=== PATIENT | male | born 1975 | race Asian ===

== ENCOUNTER 2016-03-06 11:54 | Outpatient (CLI) | payer OTHER ==
[~2016-03-06 11:54] MED LIST: FA-80.8 MG PO; HYDR500C PO; PANT40TA PO; PROBIOTIC1 TAB PO; WARF5TAB6 PO; WARFARIN7.5 MG PO; XARELTO20 MG PO
[2016-03-06 12:42] LABS: PLATELET COUNT 289 K/uL (142-355)
[2016-03-06 13:03] LABS: POTASSIUM 3.7 mmol/L (3.6-5.2); SODIUM 136 mmol/L (136-145)
== END 2016-03-06 12:54 | disposition home or self-care (01) ==
LOC: LABW 11:54
PROVIDERS: Internal Medicine
DX: D57.1 Sickle-cell disease without crisis (principal)
CPT/HCPCS: 36415; 80053; 85007; 85027

== ENCOUNTER 2016-05-30 15:01 | Emergency (ER) | payer OTHER ==
[~2016-05-30] VITALS: Ht 175.3 cm; Wt 64.4 kg
[2016-05-30 18:11] LABS: PLATELET COUNT 297 K/uL (142-355)
[2016-05-30 18:20] LABS: POTASSIUM 3.9 mmol/L (3.6-5.2); SODIUM 136 mmol/L (136-145)
[2016-05-31 00:44] VITALS: BP 126/82; TEMP 98.4
== END 2016-05-31 00:52 | disposition home or self-care (01) ==
LOC: ED 15:01
PROVIDERS: Specialist
DX: D57.00 Hb-SS disease with crisis, unspecified (principal)
CPT/HCPCS: 80048; 85007; 85027; 85044; 96361; 96374; 96375; 96376; 99284; J1170; J1885; J2175; J2405; J2550

== ENCOUNTER 2016-05-31 11:14 | Inpatient (IN) | payer OTHER ==
[~2016-05-31] VITALS: Ht 175.3 cm; Wt 64.4 kg
[2016-05-31 11:18] VITALS: BP 127/73; TEMP 98.9
[2016-05-31 13:08] LABS: POTASSIUM 3.9 mmol/L (3.6-5.2); SODIUM 134 mmol/L (136-145)
[2016-05-31 13:10] VITALS: BP 119/65; TEMP 98.5
[2016-05-31 13:21] LABS: PLATELET COUNT 266 K/uL (142-355)
[2016-05-31 15:25] VITALS: BP 106/55
[2016-05-31 16:18] VITALS: BP 98/52; TEMP 98.5; Ht 175.3 cm; Wt 64.4 kg
[2016-05-31 20:00] VITALS: BP 102/50; TEMP 98.8
[2016-06-01 00:28] VITALS: BP 95/47; TEMP 98.4
[2016-06-01 04:00] VITALS: BP 90/49; TEMP 98.3
[2016-06-01 04:46] LABS: PLATELET COUNT 249 K/uL (142-355)
[2016-06-01 04:58] LABS: POTASSIUM 3.9 mmol/L (3.6-5.2); SODIUM 131 mmol/L (136-145)
[2016-06-01 08:00] VITALS: BP 103/50; TEMP 98
[2016-06-01 12:19] VITALS: BP 96/57; TEMP 97.7
[2016-06-01 16:00] VITALS: BP 110/62; TEMP 97.7
[2016-06-01 20:00] VITALS: BP 105/47; TEMP 98.1
[2016-06-02 00:23] VITALS: BP 135/64; TEMP 98.4
[2016-06-02 05:06] VITALS: BP 95/40; TEMP 97.6
[2016-06-02 05:48] LABS: POTASSIUM 3.6 mmol/L (3.6-5.2); SODIUM 135 mmol/L (136-145)
[2016-06-02 06:21] LABS: PLATELET COUNT 244 K/uL (142-355)
[2016-06-02 08:00] VITALS: BP 101/62; TEMP 97.7
[2016-06-02 12:00] VITALS: BP 89/47; TEMP 98.1
[2016-06-02 16:00] VITALS: BP 107/50; TEMP 98.1
[2016-06-02 19:55] VITALS: BP 106/60; TEMP 98.1
[2016-06-03] VITALS: BP 92/46; TEMP 97.8
[2016-06-03 05:27] VITALS: BP 102/55; TEMP 98
[2016-06-03 05:50] LABS: POTASSIUM 3.6 mmol/L (3.6-5.2); SODIUM 135 mmol/L (136-145)
[2016-06-03 07:00] LABS: PLATELET COUNT 246 K/uL (142-355)
[2016-06-03 08:18] VITALS: BP 105/51; TEMP 98
[2016-06-03 12:00] VITALS: BP 142/50; TEMP 97.9
[2016-06-03 16:00] VITALS: BP 93/48; TEMP 98
[2016-06-03] MEDS ORDERED: OMEP40CA PO (18:25)
[2016-06-03] MEDS ORDERED: FOLI1TAB26 PO (18:25)
[2016-06-03 20:00] VITALS: BP 112/65; TEMP 98.1
[2016-06-04] VITALS: BP 99/32; TEMP 97.9
[2016-06-04 04:00] VITALS: BP 94/48; TEMP 97.6
[2016-06-04 06:22] LABS: POTASSIUM 3.5 mmol/L (3.6-5.2); SODIUM 136 mmol/L (136-145)
[2016-06-04 07:06] LABS: PLATELET COUNT 306 K/uL (142-355)
[2016-06-04 08:00] VITALS: BP 107/50; TEMP 98
[2016-06-04 12:00] VITALS: BP 112/64; TEMP 97.9
== END 2016-06-04 17:14 | disposition home or self-care (01) | DRG 812 ==
LOC: ED 11:14 → MED/SURG 14:17
PROVIDERS: Internal Medicine
PROC: 05H533Z Insertion of Infusion Device into Right Subclavian Vein, Percutaneous Approach (ICD-10-PCS; principal; 2016-05-31)
DX: D57.819 Other sickle-cell disorders with crisis, unspecified (principal); R11.2 Nausea with vomiting, unspecified; R73.9 Hyperglycemia, unspecified; E88.09 Other disorders of plasma-protein metabolism, not elsewhere classified; E83.42 Hypomagnesemia; E80.6 Other disorders of bilirubin metabolism
CPT/HCPCS: 36558; 36591; 80048; 80053; 81000; 83615; 83735; 85007; 85027; 85044; 87804; 96360; 96361; 96372; 96374; 96375; 96376; 99284; C1768; J1170; J1650; J1885; J2175; J2405; J2550; J3411; J3490

== ENCOUNTER 2016-08-07 19:42 | Emergency (ER) | payer OTHER ==
[~2016-08-07] VITALS: Ht 175.3 cm; Wt 65.8 kg
[~2016-08-07 19:42] MED LIST changes: +FOLI1TAB26 PO; +OMEP40CA PO
[2016-08-07 21:19] LABS: PLATELET COUNT 328 K/uL (142-355)
[2016-08-08 00:39] VITALS: BP 138/50; TEMP 97.8
== END 2016-08-08 00:47 | disposition home or self-care (01) ==
LOC: ED 19:42
DX: D57.1 Sickle-cell disease without crisis (principal); R52 Pain, unspecified
CPT/HCPCS: 85007; 85027; 96361; 96374; 96375; 96376; 99284; J2175; J2550

== ENCOUNTER 2016-08-09 15:08 | Inpatient (IN) | payer OTHER ==
[2016-08-09] VITALS (9 sets, daily range): BP systolic 120–142; BP diastolic 61–84; TEMP 97.9–98.3; Ht 175.3 cm; Wt 63.2 kg
[~2016-08-09] VITALS: Ht 175.3 cm; Wt 63.2 kg
[2016-08-09 15:55] LABS: PLATELET COUNT 295 K/uL (142-355)
[2016-08-09 16:03] LABS: POTASSIUM 4.3 mmol/L (3.6-5.2); SODIUM 139 mmol/L (136-145)
--- NOTE | 2016-08-09 20:00 | NUR ---
PT ARRIVED TO FLOOR VIA STRETCHER PER ER STAFF AT THIS TIME. NAD NOTED. BREATHING IS EQUAL AND UNLABORED. O2 AT 3LPM VIA NC IN USE AT THIS TIME. 20G IV TO RIGHT IJ IS PATENT WITH D51/2 NS WITH 20 MEQ OF KCL RUNNING AT 125 MLS/HOUR. PT WAS ORIENTED TO CALL LIGHT. PT VOICES NO COMPLAINTS AT THIS TIME. WILL CONTINUE TO MONITOR.
[2016-08-10] VITALS: BP 117/59; TEMP 98
[2016-08-10 04:00] VITALS: BP 120/62; TEMP 97.9
[2016-08-10 08:00] VITALS: BP 133/80; TEMP 97.8
[2016-08-10 12:00] VITALS: BP 132/78; TEMP 98
[2016-08-10 16:00] VITALS: BP 130/76; TEMP 97.8
[2016-08-10 20:00] VITALS: BP 124/74; TEMP 98.7
[2016-08-11] VITALS: BP 109/52; TEMP 97.9
[2016-08-11 04:00] VITALS: BP 104/98; TEMP 97.2
[2016-08-11 06:20] LABS: PLATELET COUNT 282 K/uL (142-355)
[2016-08-11 06:22] LABS: POTASSIUM 4.3 mmol/L (3.6-5.2); SODIUM 138 mmol/L (136-145)
[2016-08-11 08:00] VITALS: BP 102/53; TEMP 98.2
[2016-08-11 11:58] VITALS: BP 115/69; TEMP 97.9
[2016-08-11 15:53] VITALS: BP 122/63; TEMP 98.1
--- NOTE | 2016-08-11 17:15 | NUR ---
1030 PT HAS COMPLETED DRESSING CHANGES TO EACH FOOT. PT STATED BOTH FEET FELT BETTER TODAY AND DID NOT WISH FOR ME TO COMPLETE DRESSING CHANGES THIS SHIFT .
[2016-08-11 20:00] VITALS: BP 104/64; TEMP 98.4
[2016-08-12 00:05] VITALS: BP 145/76; TEMP 98.4
[2016-08-12 04:00] VITALS: BP 111/52; TEMP 98.3
[2016-08-12 06:23] LABS: PLATELET COUNT 290 K/uL (142-355)
[2016-08-12 06:29] LABS: SODIUM 139 mmol/L (136-145)
[2016-08-12 08:00] VITALS: BP 117/57; TEMP 98.3
[2016-08-12 12:00] VITALS: BP 125/62; TEMP 98.4
[2016-08-12 16:00] VITALS: BP 113/63; TEMP 98
[2016-08-12 20:00] VITALS: BP 123/64; TEMP 98.3
[2016-08-13] VITALS: BP 113/72; TEMP 99
[2016-08-13 04:00] VITALS: BP 124/77; TEMP 98.2
[2016-08-13 06:16] LABS: PLATELET COUNT 310 K/uL (142-355)
[2016-08-13 06:21] LABS: POTASSIUM 3.7 mmol/L (3.6-5.2); SODIUM 141 mmol/L (136-145)
[2016-08-13 07:49] VITALS: BP 114/51; TEMP 98.2
[2016-08-13 12:00] VITALS: BP 114/78; TEMP 98.1
[2016-08-13 16:00] VITALS: BP 133/72; TEMP 97.8
[2016-08-13 20:00] VITALS: BP 121/76; TEMP 98.1
[2016-08-14] VITALS: BP 121/68; TEMP 98.2
[2016-08-14 04:00] VITALS: BP 134/79; TEMP 98
[2016-08-14 08:00] VITALS: BP 119/66; TEMP 98
[2016-08-14 12:00] VITALS: BP 126/76; TEMP 98.4
== END 2016-08-14 15:30 | disposition home or self-care (01) | DRG 812 ==
LOC: ED 15:08 → MED/SURG 18:22
PROVIDERS: Emergency Medicine; ADMIT Specialist
DX: D57.819 Other sickle-cell disorders with crisis, unspecified (principal); L97.529 Non-pressure chronic ulcer of other part of left foot with unspecified severity
CPT/HCPCS: 36415; 80048; 80053; 81000; 82085; 82550; 82553; 83735; 84100; 84484; 85007; 85027; 85044; 87070; 87205; 94760; 96360; 96361; 96372; 96374; 96375; 96376; 99284; J1100; J1170; J1200; J1650; J2175; J2550

== ENCOUNTER 2016-08-23 00:42 | Emergency (ER) | payer OTHER ==
[~2016-08-23] VITALS: Ht 175.3 cm; Wt 63.5 kg
[2016-08-23 01:17] LABS: PLATELET COUNT 245 K/uL (142-355)
[2016-08-23 01:30] LABS: POTASSIUM 4.2 mmol/L (3.6-5.2); SODIUM 135 mmol/L (136-145)
[2016-08-23 06:41] VITALS: BP 121/86; TEMP 98.3
== END 2016-08-23 06:42 | disposition home or self-care (01) ==
LOC: ED 00:42
DX: D57.1 Sickle-cell disease without crisis (principal)
CPT/HCPCS: 36415; 80048; 81000; 85007; 85027; 85044; 96360; 96361; 96374; 96375; 99284; J2175; J2550

== ENCOUNTER 2016-10-24 03:52 | Emergency (ER) | payer OTHER ==
[~2016-10-24] VITALS: Ht 175.3 cm; Wt 60.3 kg
[2016-10-24 03:48] VITALS: TEMP 97.8
[2016-10-24 05:33] LABS: SODIUM 137 mmol/L (136-145)
[2016-10-24 05:38] LABS: PLATELET COUNT 280 K/uL (142-355)
[2016-10-24 09:00] VITALS: BP 128/67
== END 2016-10-24 09:15 | disposition home or self-care (01) ==
LOC: ED 03:52
PROVIDERS: Emergency Medicine
DX: D57.00 Hb-SS disease with crisis, unspecified (principal); R19.7 Diarrhea, unspecified
CPT/HCPCS: 80053; 81000; 85007; 85027; 96361; 96374; 96375; 96376; 99284; J1170; J1200; J2175

== ENCOUNTER 2016-12-27 15:49 | Outpatient (CLI) | payer OTHER ==
[2016-12-27 16:22] LABS: PLATELET COUNT 319 K/uL (142-355)
[2016-12-27 17:00] LABS: POTASSIUM 4.6 mmol/L (3.6-5.2); SODIUM 135 mmol/L (136-145)
== END 2016-12-27 21:39 | disposition home or self-care (01) ==
LOC: LABW 15:49
PROVIDERS: Internal Medicine Hematology & Oncology
DX: D57.80 Other sickle-cell disorders without crisis (principal)
CPT/HCPCS: 80053; 85007; 85027

== ENCOUNTER 2017-02-07 10:42 | Outpatient (CLI) | payer OTHER ==
[~2017-02-07] VITALS: Ht 175.3 cm; Wt 62.6 kg
[2017-02-07 11:44] LABS: PLATELET COUNT 239 K/uL (142-355)
[2017-02-07 12:19] LABS: POTASSIUM 4.6 mmol/L (3.6-5.2); SODIUM 139 mmol/L (136-145)
== END 2017-02-07 13:30 | disposition home or self-care (01) ==
LOC: INF 10:42
PROVIDERS: Internal Medicine
DX: D57.80 Other sickle-cell disorders without crisis (principal); D57.3 Sickle-cell trait; M54.89 Other dorsalgia; J06.9 Acute upper respiratory infection, unspecified
CPT/HCPCS: 80053; 85027; 96360

== ENCOUNTER 2017-02-07 20:57 | Emergency (ER) | payer OTHER ==
[~2017-02-07] VITALS: Ht 175.3 cm; Wt 62.6 kg
[2017-02-07 21:45] LABS: PLATELET COUNT 291 K/uL (142-355)
[2017-02-07 21:53] LABS: POTASSIUM 3.7 mmol/L (3.6-5.2); SODIUM 138 mmol/L (136-145)
[2017-02-08 03:30] VITALS: BP 123/68; TEMP 98.6
== END 2017-02-08 03:31 | disposition home or self-care (01) ==
LOC: ED 20:57
PROVIDERS: Specialist
DX: D57.00 Hb-SS disease with crisis, unspecified (principal); D57.80 Other sickle-cell disorders without crisis; D57.3 Sickle-cell trait; M54.89 Other dorsalgia; J06.9 Acute upper respiratory infection, unspecified
CPT/HCPCS: 36415; 80048; 80053; 81000; 85007; 85027; 85044; 96360; 96361; 96365; 96374; 96375; 96376; 99285; J1170; J2550

== ENCOUNTER 2017-02-16 07:14 | Inpatient (IN) | payer OTHER ==
[2017-02-16] VITALS (7 sets, daily range): BP systolic 100–134; BP diastolic 50–76; TEMP 97.9–99; Ht 175.3 cm; Wt 61.8 kg
[~2017-02-16] VITALS: Ht 175.3 cm; Wt 61.8 kg
[2017-02-16 09:21] LABS: PLATELET COUNT 288 K/uL (142-355)
[2017-02-17] VITALS: BP 138/78; TEMP 99.1
[2017-02-17 05:50] VITALS: BP 117/74; TEMP 98.1
[2017-02-17 06:55] LABS: PLATELET COUNT 243 K/uL (142-355)
[2017-02-17 08:00] VITALS: BP 100/46; TEMP 98.4
[2017-02-17 09:21] LABS: POTASSIUM 4.5 mmol/L (3.6-5.2); SODIUM 134 mmol/L (136-145)
[2017-02-17 11:44] VITALS: BP 101/54; TEMP 98.5
[2017-02-17 16:00] VITALS: BP 117/57; TEMP 98.2
[2017-02-17 20:00] VITALS: BP 108/55; TEMP 98.9
[2017-02-18] VITALS: BP 118/53; TEMP 98.8
[2017-02-18 04:00] VITALS: BP 133/70; TEMP 98.5
[2017-02-18 06:28] LABS: POTASSIUM 4.4 mmol/L (3.6-5.2); SODIUM 136 mmol/L (136-145)
[2017-02-18 06:49] LABS: PLATELET COUNT 290 K/uL (142-355)
[2017-02-18 08:00] VITALS: BP 106/58; TEMP 98
[2017-02-18 16:00] VITALS: BP 110/54; TEMP 98.3
[2017-02-18 20:00] VITALS: BP 115/64; TEMP 97.7
[2017-02-19] VITALS: BP 115/54; TEMP 98.3
[2017-02-19 04:00] VITALS: BP 116/71; TEMP 98.1
[2017-02-19 06:37] LABS: SODIUM 136 mmol/L (136-145)
[2017-02-19 06:41] LABS: POTASSIUM 4.9 mmol/L (3.6-5.2)
[2017-02-19 07:59] LABS: PLATELET COUNT 264 K/uL (142-355)
== END 2017-02-19 09:50 | disposition home or self-care (01) | DRG 812 ==
LOC: ED 07:14 → MED/SURG 10:47
PROVIDERS: Internal Medicine; ADMIT Specialist
DX: D57.811 Other sickle-cell disorders with acute chest syndrome (principal); E86.0 Dehydration
CPT/HCPCS: 36415; 80053; 85007; 85027; 85044; 96361; 96374; 96375; 96376; 99284; J1170; J1200; J2175; J2405; J2550

== ENCOUNTER 2017-05-08 12:32 | Emergency (ER) | payer OTHER ==
[~2017-05-08] VITALS: Ht 175.3 cm; Wt 63.5 kg
[2017-05-08 13:47] LABS: PLATELET COUNT 297 K/uL (142-355)
[2017-05-08 14:51] LABS: POTASSIUM 4.3 mmol/L (3.6-5.2); SODIUM 136 mmol/L (136-145)
[2017-05-08 20:24] VITALS: BP 127/73; TEMP 98.1
== END 2017-05-08 20:25 | disposition home or self-care (01) ==
LOC: ED 12:32
PROVIDERS: Family Medicine
DX: D57.00 Hb-SS disease with crisis, unspecified (principal); R10.9 Unspecified abdominal pain
CPT/HCPCS: 36415; 80053; 82150; 82550; 83690; 83735; 84100; 84484; 85027; 85044; 96360; 96374; 96375; 96376; 99284; J1170; J2270; J2405

== ENCOUNTER 2017-05-19 22:40 | Inpatient (IN) | payer OTHER ==
[~2017-05-19] VITALS: Ht 175.3 cm; Wt 59.1 kg
[2017-05-19 22:55] VITALS: BP 133/79; TEMP 99
[2017-05-19 23:00] VITALS: BP 152/79
[2017-05-19 23:31] VITALS: BP 160/80
[2017-05-20] VITALS (11 sets, daily range): BP systolic 103–160; BP diastolic 61–81; TEMP 98–98.5; Ht 175.3 cm; Wt 59.1 kg
[2017-05-20 00:19] LABS: PLATELET COUNT 322 K/uL (142-355)
[2017-05-20 10:01] LABS: PLATELET COUNT 296 K/uL (142-355)
[2017-05-21] VITALS: BP 119/70; TEMP 98.2
[2017-05-21 04:00] VITALS: BP 117/65; TEMP 98.7
[2017-05-21 06:22] LABS: PLATELET COUNT 284 K/uL (142-355)
[2017-05-21 06:41] LABS: POTASSIUM 4.2 mmol/L (3.6-5.2)
[2017-05-21 08:00] VITALS: BP 104/52; TEMP 98.2
[2017-05-21 11:50] VITALS: BP 116/71; TEMP 98
[2017-05-21 16:00] VITALS: BP 105/61; TEMP 98
[2017-05-21 20:00] VITALS: BP 105/52; TEMP 98.4
[2017-05-22] VITALS: BP 100/50; TEMP 98.4
[2017-05-22 04:00] VITALS: BP 133/62; TEMP 98.2
[2017-05-22 08:00] VITALS: BP 109/57; TEMP 98.4
[2017-05-22 08:56] LABS: POTASSIUM 4.3 mmol/L (3.6-5.2)
[2017-05-22 11:07] LABS: PLATELET COUNT 278 K/uL (142-355)
[2017-05-22 12:00] VITALS: BP 123/67; TEMP 98.2
[2017-05-22 16:00] VITALS: BP 115/67; TEMP 97.7
[2017-05-22 20:00] VITALS: BP 136/69; TEMP 98.1
[2017-05-23] VITALS: BP 120/64; TEMP 98.9
[2017-05-23 04:00] VITALS: BP 170/89; TEMP 98.6
[2017-05-23 08:09] VITALS: BP 98/51; TEMP 98.6
[2017-05-23 09:29] LABS: PLATELET COUNT 297 K/uL (142-355); POTASSIUM 4.6 mmol/L (3.6-5.2)
[2017-05-23 12:07] VITALS: BP 140/68; TEMP 98.6
[2017-05-23 16:00] VITALS: BP 131/65; TEMP 99.2
[2017-05-23 20:00] VITALS: BP 106/52; TEMP 98.6
[2017-05-24] VITALS: BP 119/67; TEMP 98
[2017-05-24 04:00] VITALS: BP 117/54; TEMP 99.8
[2017-05-24 08:00] VITALS: BP 106/57; TEMP 97.5
[2017-05-24 08:08] LABS: PLATELET COUNT 293 K/uL (142-355)
[2017-05-24 08:26] LABS: POTASSIUM 3.7 mmol/L (3.6-5.2)
[2017-05-24 12:00] VITALS: BP 111/59; TEMP 98.4
[2017-05-24 16:29] VITALS: BP 93/50; TEMP 98.7
[2017-05-24 20:00] VITALS: BP 123/79; TEMP 98.2
[2017-05-25] VITALS: BP 134/67; TEMP 99.4
[2017-05-25 04:00] VITALS: BP 110/55; TEMP 98.3
[2017-05-25 06:15] LABS: PLATELET COUNT 297 K/uL (142-355)
[2017-05-25 06:45] LABS: POTASSIUM 3.4 mmol/L (3.6-5.2)
[2017-05-25 08:00] VITALS: BP 116/69; TEMP 98.2
[2017-05-25 12:00] VITALS: BP 120/68; TEMP 98.2
== END 2017-05-25 14:12 | disposition home or self-care (01) | DRG 812 ==
LOC: ED 22:40 → MED/SURG 05-20 04:30
PROVIDERS: Family Medicine; Internal Medicine
PROC: 30233N1 Transfusion of Nonautologous Red Blood Cells into Peripheral Vein, Percutaneous Approach (ICD-10-PCS; principal; 2017-05-24)
DX: D57.00 Hb-SS disease with crisis, unspecified (principal); J98.11 Atelectasis; E80.6 Other disorders of bilirubin metabolism; R74.8 Abnormal levels of other serum enzymes; K31.84 Gastroparesis; K59.09 Other constipation; D72.828 Other elevated white blood cell count; I83.018 Varicose veins of right lower extremity with ulcer other part of lower leg; I83.028 Varicose veins of left lower extremity with ulcer other part of lower leg; B95.61 Methicillin susceptible Staphylococcus aureus infection as the cause of diseases classified elsewhere
CPT/HCPCS: 36415; 36416; 36430; 80053; 81000; 82150; 83540; 83690; 85007; 85014; 85018; 85027; 85044; 86850; 86900; 86901; 86922; 87070; 87077; 87185; 87186; 87205; 94760; 96361; 96365; 96367; 96372; 96374; 96375; 96376; 99285; J0696; J1170; J1644; J2175; J2405; J2550; J3490; P9016; Q9963

== ENCOUNTER 2017-05-28 08:08 | Outpatient (CLI) | payer OTHER ==
[2017-05-28 09:10] LABS: PLATELET COUNT 369 K/uL (142-355)
== END 2017-05-28 18:01 | disposition home or self-care (01) ==
LOC: LABW 08:08
PROVIDERS: Family Medicine
DX: R73.9 Hyperglycemia, unspecified (principal); D57.80 Other sickle-cell disorders without crisis
CPT/HCPCS: 36415; 80053; 83036; 85027

== ENCOUNTER 2017-08-10 15:54 | Emergency (ER) | payer OTHER ==
[~2017-08-10] VITALS: Ht 175.3 cm; Wt 63.5 kg
[2017-08-11 01:22] VITALS: BP 154/72; TEMP 99
== END 2017-08-11 01:22 | disposition home or self-care (01) ==
LOC: ED 15:54
DX: D57.00 Hb-SS disease with crisis, unspecified (principal)
CPT/HCPCS: 36415; 96361; 96365; 96375; 96376; 99285; J1170; J1200; J2405; J2550

== ENCOUNTER 2017-08-11 13:05 | Observation (INO) | payer OTHER ==
[~2017-08-11] VITALS: Ht 175.3 cm; Wt 57.8 kg
[2017-08-11 13:11] VITALS: BP 115/56; TEMP 100.2
[2017-08-11 15:46] LABS: PLATELET COUNT 230 K/uL (142-355)
[2017-08-11 15:56] LABS: POTASSIUM 5.1 mmol/L (3.6-5.2)
[2017-08-11 19:46] VITALS: BP 113/64; TEMP 98.1; Ht 175.3 cm; Wt 57.8 kg
== END 2017-08-11 19:45 | disposition short-term general hospital (02) ==
LOC: ED 13:05 → MED/SURG 14:30
PROC: 05HM33Z Insertion of Infusion Device into Right Internal Jugular Vein, Percutaneous Approach (ICD-10-PCS; principal; 2017-08-11)
PROC: B543ZZA Ultrasonography of Right Jugular Veins, Guidance (ICD-10-PCS; 2017-08-11)
DX: J18.8 Other pneumonia, unspecified organism (principal); I87.8 Other specified disorders of veins
CPT/HCPCS: 36415; 74022; 80053; 85007; 85027; 96367; 96372; 96374; 99220; 99284; C1768; G0378; J0456; J0696; J1170; J2405; J2550

== ENCOUNTER 2017-08-11 20:06 | Outpatient (CLI) | payer OTHER | END 2017-08-11 22:25 | disposition short-term general hospital (02) | LOC: AMB 20:06 | DX: D57.00 Hb-SS disease with crisis, unspecified (principal) | CPT/HCPCS: A0425; A0427 ==

== ENCOUNTER 2017-08-16 12:52 | Emergency (ER) | payer OTHER ==
[~2017-08-16] VITALS: Ht 175.3 cm; Wt 57.6 kg
[2017-08-16 13:10] VITALS: TEMP 98.6
[2017-08-16 13:46] LABS: POTASSIUM 4.1 mmol/L (3.6-5.2)
[2017-08-16 13:50] LABS: PLATELET COUNT 330 K/uL (142-355)
[2017-08-16 15:47] VITALS: BP 157/87
== END 2017-08-16 16:15 | disposition home or self-care (01) ==
LOC: ED 12:52
DX: K59.00 Constipation, unspecified (principal); D57.1 Sickle-cell disease without crisis
CPT/HCPCS: 36415; 80053; 81000; 82150; 83690; 85007; 85027; 85044; 96374; 99284; J1170; J2550; J7120

== ENCOUNTER 2017-08-17 18:31 | Emergency (ER) | payer OTHER ==
[~2017-08-17] VITALS: Ht 175.3 cm; Wt 57.6 kg
[2017-08-17 20:44] VITALS: BP 126/65; TEMP 98.4
== END 2017-08-17 20:47 | disposition home or self-care (01) ==
LOC: ED 18:31
DX: K52.9 Noninfective gastroenteritis and colitis, unspecified (principal)
CPT/HCPCS: 74022; 96372; 99283; J1885

== ENCOUNTER 2017-08-18 14:22 | Inpatient (IN) | payer OTHER ==
[~2017-08-18] VITALS: Ht 175.3 cm; Wt 58.1 kg
[2017-08-18 15:32] VITALS: BP 145/82; TEMP 98.7; Ht 175.3 cm; Wt 58.1 kg
[2017-08-18 16:02] LABS: PLATELET COUNT 374 K/uL (142-355)
[2017-08-18 16:20] LABS: POTASSIUM 3.7 mmol/L (3.6-5.2)
[2017-08-18 20:00] VITALS: BP 144/51; TEMP 98.1
[2017-08-19] VITALS (7 sets, daily range): BP systolic 97–133; BP diastolic 54–73; TEMP 97.7–98.8
[2017-08-19 06:27] LABS: PLATELET COUNT 335 K/uL (142-355); POTASSIUM 4.1 mmol/L (3.6-5.2)
[2017-08-20 04:00] VITALS: BP 115/63; TEMP 98.5
[2017-08-20 05:44] LABS: POTASSIUM 3.9 mmol/L (3.6-5.2)
[2017-08-20 07:49] LABS: PLATELET COUNT 253 K/uL (142-355)
[2017-08-20 07:50] VITALS: BP 110/55; TEMP 98.2
[2017-08-20 12:00] VITALS: BP 119/69; TEMP 98
[2017-08-20 16:00] VITALS: BP 116/65; TEMP 98.6
[2017-08-20 20:00] VITALS: BP 126/69; TEMP 98.6
[2017-08-21] VITALS: BP 116/60; TEMP 98.9
[2017-08-21 04:00] VITALS: BP 120/69; TEMP 98.1
[2017-08-21 07:10] LABS: PLATELET COUNT 332 K/uL (142-355)
[2017-08-21 07:23] LABS: POTASSIUM 4.1 mmol/L (3.6-5.2)
[2017-08-21 08:00] VITALS: BP 101/55; TEMP 97.9
== END 2017-08-21 09:05 | disposition home or self-care (01) | DRG 812 ==
LOC: MED/SURG 14:22
PROVIDERS: ADMIT Internal Medicine
DX: D57.411 Sickle-cell thalassemia, unspecified, with acute chest syndrome (principal); R10.84 Generalized abdominal pain
CPT/HCPCS: 36415; 36591; 80053; 81000; 82150; 83690; 85007; 85027; 85044; 94760; 96365; 96366; 96367; 96375; J2175; J2550; J3490

== ENCOUNTER 2017-10-03 13:10 | Outpatient (CLI) | payer OTHER ==
[2017-10-03 13:56] LABS: PLATELET COUNT 257 K/uL (142-355)
[2017-10-03 14:52] LABS: POTASSIUM 4.5 mmol/L (3.6-5.2)
== END 2017-10-03 19:48 | disposition home or self-care (01) ==
LOC: LAB 13:10
PROVIDERS: Internal Medicine Hematology & Oncology
DX: D57.1 Sickle-cell disease without crisis (principal)
CPT/HCPCS: 36415; 80053; 82728; 85007; 85027; 85044

== ENCOUNTER 2017-10-22 11:02 | Day surgery (SDC) | payer OTHER | END 2017-10-22 14:47 | disposition home or self-care (01) | LOC: OR 11:02 | PROC: 0DBE8ZZ Excision of Large Intestine, Via Natural or Artificial Opening Endoscopic (ICD-10-PCS; principal; 2017-10-22) | DX: K64.8 Other hemorrhoids (principal); K63.3 Ulcer of intestine; R19.4 Change in bowel habit; K59.00 Constipation, unspecified; R10.84 Generalized abdominal pain | CPT/HCPCS: J2001; J2250; J2704 ==

== ENCOUNTER 2017-12-31 21:43 | Inpatient (IN) | payer OTHER ==
[~2017-12-31] VITALS: Ht 175.3 cm; Wt 60.8 kg
[2017-12-31 21:43] VITALS: BP 153/92; TEMP 99.5
[2017-12-31 22:14] LABS: PLATELET COUNT 282 K/uL (142-355)
[2017-12-31 22:26] LABS: POTASSIUM 4.4 mmol/L (3.6-5.2)
[2018-01-01 01:17] VITALS: BP 150/88; TEMP 97.7
[2018-01-01 04:00] VITALS: BP 136/60; TEMP 97.7
[2018-01-01 04:08] VITALS: BP 150/88; TEMP 97.7; Ht 175.3 cm; Wt 60.8 kg
[2018-01-01 07:18] LABS: PLATELET COUNT 211 K/uL (142-355)
[2018-01-01 08:00] VITALS: BP 123/59; TEMP 98.2
[2018-01-01 08:12] LABS: POTASSIUM 4.3 mmol/L (3.6-5.2)
[2018-01-01 17:40] VITALS: BP 145/80; TEMP 97.8
[2018-01-01 20:00] VITALS: BP 127/70; TEMP 98.4
[2018-01-02] VITALS (7 sets, daily range): BP systolic 107–125; BP diastolic 51–97; TEMP 98.3–98.9
[2018-01-03 04:00] VITALS: BP 105/54; TEMP 98.8
[2018-01-03 06:57] LABS: PLATELET COUNT 272 K/uL (142-355)
[2018-01-03 08:16] VITALS: BP 120/73; TEMP 98.9
[2018-01-03 12:03] VITALS: BP 107/60; TEMP 97.6
[2018-01-03 16:26] VITALS: BP 119/73; TEMP 98.4
[2018-01-03 20:00] VITALS: BP 115/62; TEMP 98.4
[2018-01-03 23:48] VITALS: BP 110/64; TEMP 98.5
[2018-01-04 04:00] VITALS: BP 120/69; TEMP 98.5
[2018-01-04 08:03] VITALS: BP 119/69; TEMP 97.9
[2018-01-04 12:03] VITALS: BP 127/66; TEMP 98
[2018-01-04 16:16] VITALS: BP 113/67; TEMP 98.1
[2018-01-04 20:00] VITALS: BP 120/61; TEMP 98.6
[2018-01-04 23:44] VITALS: BP 118/76; TEMP 98.3
[2018-01-05 04:00] VITALS: BP 108/55; TEMP 98.2
[2018-01-05 08:08] VITALS: BP 127/55; TEMP 98.7
== END 2018-01-05 11:50 | disposition home or self-care (01) | DRG 812 ==
LOC: ED 21:43 → MED/SURG 23:22
PROVIDERS: Emergency Medicine; Family Medicine
PROC: 30233N1 Transfusion of Nonautologous Red Blood Cells into Peripheral Vein, Percutaneous Approach (ICD-10-PCS; principal; 2018-01-01)
DX: D57.811 Other sickle-cell disorders with acute chest syndrome (principal); E86.0 Dehydration; J02.8 Acute pharyngitis due to other specified organisms; R31.9 Hematuria, unspecified; D72.828 Other elevated white blood cell count; K21.9 Gastro-esophageal reflux disease without esophagitis; M25.50 Pain in unspecified joint; Z86.711 Personal history of pulmonary embolism
CPT/HCPCS: 36415; 80053; 81000; 82607; 82746; 85007; 85014; 85018; 85027; 85044; 86850; 86900; 86901; 86922; 93005; 94760; 96361; 96366; 96367; 96372; 96374; 96375; 96376; 99284; J0696; J1200; J1885; J1956; J2175; J2405; J2550; J2930; P9016

== ENCOUNTER 2018-02-11 12:38 | Outpatient (CLI) | payer OTHER ==
[2018-02-12 12:33] LABS: POTASSIUM 5.6 mmol/L (3.6-5.2)
== END 2018-02-11 23:02 | disposition home or self-care (01) ==
LOC: LABW 12:38
PROVIDERS: Internal Medicine
DX: R31.9 Hematuria, unspecified (principal)
CPT/HCPCS: 36415; 80053; 86592

== ENCOUNTER 2018-03-31 19:26 | Inpatient (IN) | payer OTHER ==
[~2018-03-31] VITALS: Ht 175.3 cm; Wt 58.6 kg
[2018-03-31 20:00] VITALS: BP 143/82; TEMP 98.5
[2018-03-31 21:27] LABS: PLATELET COUNT 286 K/uL (142-355)
[2018-03-31 21:30] LABS: POTASSIUM 3.8 mmol/L (3.6-5.2)
[2018-03-31 23:40] VITALS: BP 140/71; TEMP 99
[2018-03-31] MEDS ORDERED: KP FOLIC ACID1 MG PO (23:48)
[2018-03-31] MEDS ORDERED: OXYCONTIN15 MG PO (23:48)
[2018-03-31] MEDS ORDERED: TRAMADOL HCL100 MG PO (23:49)
[2018-04-01] VITALS (8 sets, daily range): BP systolic 109–130; BP diastolic 58–72; TEMP 98.1–98.5; Ht 175.3 cm; Wt 58.6 kg
[2018-04-01 06:27] LABS: POTASSIUM 3.8 mmol/L (3.6-5.2)
[2018-04-01 06:32] LABS: PLATELET COUNT 274 K/uL (142-355)
[2018-04-02] VITALS: BP 107/54; TEMP 98.4
[2018-04-02 04:00] VITALS: BP 106/68; TEMP 98.7
[2018-04-02 08:09] VITALS: BP 131/69; TEMP 98.5
[2018-04-02 08:11] LABS: PLATELET COUNT 301 K/uL (142-355)
[2018-04-02 08:36] LABS: POTASSIUM 4.3 mmol/L (3.6-5.2)
[2018-04-02 12:09] VITALS: BP 107/59; TEMP 98.4
[2018-04-02 16:18] VITALS: BP 115/59; TEMP 98.4
[2018-04-02 20:00] VITALS: BP 114/63; TEMP 98.6
[2018-04-03] VITALS: BP 103/60; TEMP 99
[2018-04-03 04:00] VITALS: BP 113/59; TEMP 98.9
[2018-04-03 06:40] LABS: PLATELET COUNT 306 K/uL (142-355)
[2018-04-03 06:45] LABS: POTASSIUM 4.1 mmol/L (3.6-5.2)
[2018-04-03 08:03] VITALS: BP 111/54; TEMP 98.3
== END 2018-04-03 09:43 | disposition home or self-care (01) | DRG 812 ==
LOC: ED 19:26 → MED/SURG 23:33
PROVIDERS: Internal Medicine; ADMIT Internal Medicine
DX: D57.819 Other sickle-cell disorders with crisis, unspecified (principal); L97.318 Non-pressure chronic ulcer of right ankle with other specified severity; E86.0 Dehydration; L08.89 Other specified local infections of the skin and subcutaneous tissue; B95.62 Methicillin resistant Staphylococcus aureus infection as the cause of diseases classified elsewhere; Z86.711 Personal history of pulmonary embolism
CPT/HCPCS: 80053; 81000; 83615; 85007; 85014; 85018; 85027; 85044; 86850; 86900; 86901; 87070; 87077; 87185; 87186; 87205; 93005; 94760; 96361; 96365; 96375; 96376; 99284; J2175; J2270; J2405; J2543; J2550

== ENCOUNTER 2018-04-11 20:52 | Inpatient (IN) | payer OTHER ==
[~2018-04-11] VITALS: Ht 175.3 cm; Wt 59.5 kg
[~2018-04-11 20:52] MED LIST changes: +KP FOLIC ACID1 MG PO; +OXYCONTIN15 MG PO; +TRAMADOL HCL100 MG PO
[2018-04-11 20:55] VITALS: BP 102/53; TEMP 100.2
[2018-04-11 21:28] LABS: PLATELET COUNT 384 K/uL (142-355)
[2018-04-11 22:08] LABS: POTASSIUM 4.3 mmol/L (3.6-5.2)
[2018-04-12 04:00] VITALS: BP 92/45; TEMP 97.9
[2018-04-12 04:30] VITALS: BP 100/57; TEMP 98.2; Ht 175.3 cm; Wt 59.5 kg
[2018-04-12 08:00] VITALS: BP 113/58; TEMP 97.6
[2018-04-12 09:10] LABS: POTASSIUM 4.3 mmol/L (3.6-5.2)
[2018-04-12 09:11] LABS: PLATELET COUNT 125 K/uL (142-355)
[2018-04-12] MEDS ORDERED: PANTOPRAZOLE 40MG TA PO (10:58)
[2018-04-12] MEDS ORDERED: TRAMADOL HYDROC50 MG PO (11:02)
[2018-04-12] MEDS ORDERED: DICYCLOMINE HYD20 MG PO (11:03)
[2018-04-12] MEDS ORDERED: CLIN300C PO (11:05)
[2018-04-12 12:00] VITALS: BP 110/60; TEMP 98.1
[2018-04-12 16:00] VITALS: BP 127/73; TEMP 98.3
[2018-04-12 20:00] VITALS: BP 124/64; TEMP 98.5
[2018-04-13] VITALS: BP 101/56; TEMP 99.1
[2018-04-13 04:00] VITALS: BP 99/42; TEMP 99.5
[2018-04-13 07:16] LABS: POTASSIUM 4.8 mmol/L (3.6-5.2)
[2018-04-13 07:59] LABS: PLATELET COUNT 265 K/uL (142-355)
[2018-04-13 08:10] VITALS: BP 105/57; TEMP 99
[2018-04-13 12:00] VITALS: BP 100/54; TEMP 97.9
[2018-04-13 16:00] VITALS: BP 106/56; TEMP 98.4
[2018-04-13 20:31] VITALS: BP 106/51; TEMP 98.6
[2018-04-14 00:03] VITALS: BP 95/50; TEMP 98.8
[2018-04-14 04:07] VITALS: BP 102/59; TEMP 97.6
[2018-04-14 04:27] LABS: PLATELET COUNT 294 K/uL (142-355)
[2018-04-14 05:04] LABS: POTASSIUM 4.4 mmol/L (3.6-5.2)
[2018-04-14 08:00] VITALS: BP 113/56; TEMP 97.7
[2018-04-14 12:00] VITALS: BP 114/66; TEMP 87
[2018-04-14 16:00] VITALS: BP 121/69; TEMP 97.7
[2018-04-14 20:00] VITALS: BP 146/62; TEMP 98.3
[2018-04-15] VITALS: BP 127/73; TEMP 98.8
[2018-04-15 04:32] VITALS: BP 113/68; TEMP 98.5
[2018-04-15 05:45] LABS: PLATELET COUNT 316 K/uL (142-355)
[2018-04-15 06:13] LABS: POTASSIUM 4.3 mmol/L (3.6-5.2)
[2018-04-15 08:07] VITALS: BP 124/67; TEMP 97.8
== END 2018-04-15 10:05 | disposition home or self-care (01) | DRG 193 ==
LOC: ED 20:52 → MED/SURG 23:17
PROVIDERS: Family Medicine; Internal Medicine; ADMIT Family Medicine
PROC: 30233N1 Transfusion of Nonautologous Red Blood Cells into Peripheral Vein, Percutaneous Approach (ICD-10-PCS; principal; 2018-04-13)
DX: J18.8 Other pneumonia, unspecified organism (principal); D57.819 Other sickle-cell disorders with crisis, unspecified; E86.0 Dehydration; Y95 Nosocomial condition
CPT/HCPCS: 36415; 36416; 80053; 80202; 81000; 85007; 85014; 85018; 85027; 86850; 86900; 86901; 86922; 87040; 87502; 87899; 93005; 94640; 94664; 94760; 96361; 96365; 96372; 96375; J0456; J0696; J1170; J1644; J2175; J2550; J3370; J3490; P9016

== ENCOUNTER 2018-05-11 10:11 | Outpatient (CLI) | payer OTHER ==
[~2018-05-11 10:11] MED LIST changes: +CLIN300C PO; +DICYCLOMINE HYD20 MG PO; +PANTOPRAZOLE 40MG TA PO; +TRAMADOL HYDROC50 MG PO
[2018-05-11 10:47] LABS: PLATELET COUNT 283 K/uL (142-355)
[2018-05-11 12:06] LABS: POTASSIUM 4.7 mmol/L (3.6-5.2)
== END 2018-05-11 19:46 | disposition home or self-care (01) ==
LOC: LABW 10:11
PROVIDERS: Internal Medicine Hematology & Oncology
DX: D57.1 Sickle-cell disease without crisis (principal)
CPT/HCPCS: 36415; 80053; 82728; 85027; 85044

== ENCOUNTER 2018-05-11 19:31 | Emergency (ER) | payer OTHER ==
[~2018-05-11] VITALS: Ht 175.3 cm; Wt 59.4 kg
[2018-05-11 19:40] VITALS: BP 138/54; TEMP 98.8
== END 2018-05-11 20:20 | disposition home or self-care (01) ==
LOC: ED 19:31
DX: S61.213A Laceration without foreign body of left middle finger without damage to nail, initial encounter (principal); W29.3XXA Contact with powered garden and outdoor hand tools and machinery, initial encounter
CPT/HCPCS: 90471; 90715; 99283

== ENCOUNTER 2018-07-09 07:27 | Outpatient (CLI) | payer OTHER | END 2018-07-09 23:08 | disposition home or self-care (01) | LOC: NM 07:27 | DX: K30 Functional dyspepsia (principal); R14.1 Gas pain | CPT/HCPCS: A9541 ==

== ENCOUNTER 2018-09-02 12:29 | Inpatient (IN) | payer OTHER ==
[2018-09-02] VITALS (9 sets, daily range): BP systolic 98–118; BP diastolic 52–63; TEMP 98–102.7; Ht 175.3 cm; Wt 60.6 kg
[~2018-09-02] VITALS: Ht 175.3 cm; Wt 60.6 kg
[2018-09-02 13:04] LABS: PLATELET COUNT 287 K/uL (142-355)
[2018-09-02 13:15] LABS: POTASSIUM 4.6 mmol/L (3.6-5.2)
[2018-09-02] MEDS ORDERED: KP FOLIC ACID1 MG PO (18:12)
[2018-09-02] MEDS ORDERED: LISI5TAB10 PO (18:12)
[2018-09-02] MEDS ORDERED: DEXILANT60 M1 PO (18:13)
[2018-09-02] MEDS ORDERED: METOCLOPRAMIDE O5 MG PO (18:14)
[2018-09-03] VITALS: BP 112/49; TEMP 98.3
[2018-09-03 04:00] VITALS: BP 103/58; TEMP 98
[2018-09-03 06:40] LABS: POTASSIUM 4.2 mmol/L (3.6-5.2)
[2018-09-03 08:00] VITALS: BP 110/62; TEMP 97.6
[2018-09-03 08:02] LABS: PLATELET COUNT 192 K/uL (142-355)
[2018-09-03 12:00] VITALS: BP 113/62; TEMP 97.4
[2018-09-03 16:00] VITALS: BP 113/62; TEMP 97.8
[2018-09-03 20:00] VITALS: BP 109/60; TEMP 98.1
[2018-09-04] VITALS: BP 116/58; TEMP 98.4
[2018-09-04 04:00] VITALS: BP 121/68; TEMP 98.2
[2018-09-04 06:23] LABS: PLATELET COUNT 237 K/uL (142-355)
[2018-09-04 08:03] VITALS: BP 108/59; TEMP 97.7
[2018-09-04 08:08] LABS: POTASSIUM 4.7 mmol/L (3.6-5.2)
[2018-09-04 12:05] VITALS: BP 122/70; TEMP 97.7
[2018-09-04 16:01] VITALS: BP 129/75; TEMP 97.9
[2018-09-04 19:45] VITALS: BP 157/64; TEMP 97.8
[2018-09-05] VITALS (7 sets, daily range): BP systolic 109–144; BP diastolic 67–77; TEMP 97.7–98.2
[2018-09-05 14:33] LABS: PLATELET COUNT 240 K/uL (142-355)
[2018-09-06 04:00] VITALS: BP 115/62; TEMP 97.9
[2018-09-06 06:40] LABS: PLATELET COUNT 232 K/uL (142-355)
[2018-09-06 08:00] VITALS: BP 132/80; TEMP 97.9
[2018-09-06 12:00] VITALS: BP 146/76; TEMP 98
== END 2018-09-06 13:29 | disposition home or self-care (01) | DRG 811 ==
LOC: ED 12:29 → MED/SURG 15:38
PROVIDERS: Emergency Medicine; ADMIT Family Medicine
PROC: 05H533Z Insertion of Infusion Device into Right Subclavian Vein, Percutaneous Approach (ICD-10-PCS; principal; 2018-09-02)
PROC: 30243N1 Transfusion of Nonautologous Red Blood Cells into Central Vein, Percutaneous Approach (ICD-10-PCS; 2018-09-03)
DX: D57.819 Other sickle-cell disorders with crisis, unspecified (principal); J18.8 Other pneumonia, unspecified organism; J96.01 Acute respiratory failure with hypoxia; J21.9 Acute bronchiolitis, unspecified; K72.90 Hepatic failure, unspecified without coma; Z86.711 Personal history of pulmonary embolism; Z91.14 Patient's other noncompliance with medication regimen; I87.8 Other specified disorders of veins
CPT/HCPCS: 36415; 36600; 80053; 82553; 82805; 83605; 83880; 84484; 85007; 85027; 85044; 85379; 85651; 86850; 86900; 86901; 86922; 87040; 93005; 94640; 94664; 94760; 96360; 96375; 99220; 99284; C1768; G0378; J0456; J0696; J1650; J1885; J2175; J2550; J2765; J2930; J3490; P9016; Q9963

== ENCOUNTER 2018-09-28 10:53 | Outpatient (CLI) | payer OTHER ==
[~2018-09-28 10:53] MED LIST changes: +DEXILANT60 M1 PO; +LISI5TAB10 PO; +METOCLOPRAMIDE O5 MG PO
[2018-09-28 11:06] LABS: PLATELET COUNT 306 K/uL (142-355)
== END 2018-09-29 05:50 | disposition home or self-care (01) ==
LOC: LABW 10:53
PROVIDERS: Internal Medicine Hematology & Oncology
DX: D57.1 Sickle-cell disease without crisis (principal)
CPT/HCPCS: 36415; 82728; 85007; 85027

== ENCOUNTER 2018-10-19 15:53 | Inpatient (IN) | payer OTHER ==
[~2018-10-19] VITALS: Ht 175.3 cm; Wt 58.2 kg
[2018-10-19] VITALS (7 sets, daily range): BP systolic 113–145; BP diastolic 35–75; TEMP 97.7–98.2
[2018-10-19 17:26] LABS: PLATELET COUNT 363 K/uL (142-355)
[2018-10-19 17:33] LABS: POTASSIUM 4.1 mmol/L (3.6-5.2)
--- NOTE | 2018-10-19 22:00 | NUR ---
2199- TOOK REPORT ON PATIENT FROM ED NURSE INNA 2214- PATIENT WAS TRANSFERRED VIA W/C TO ROOM 1115 ON MED-SURG FROM THE ED. PT WAS ORIENTED TO ROOM AND CALL LIGHT. PLACED ON TELEMENTRY AND BEING MONITORED AT THE NURSES STATION. CALL LIGHT IS WITHIN REACH AND MOTHER IS AT BEDSIDE. WILL CONTINUE TO MONITOR.
[2018-10-20] VITALS (7 sets, daily range): BP systolic 97–122; BP diastolic 40–62; TEMP 98–98.2
[2018-10-20] MEDS ORDERED: TRAMADOL HYDROC50 MG PO (03:18)
[2018-10-20] MEDS ORDERED: OXYCONTIN15 MG PO (03:19)
[2018-10-20] MEDS ORDERED: AMBIEN5 MG PO (03:21)
[2018-10-20] MEDS ORDERED: METOCLOPRAMIDE10 MG PO (03:24)
[2018-10-20 05:19] LABS: PLATELET COUNT 302 K/uL (142-355)
--- NOTE | 2018-10-20 05:51 | NUR ---
Lab called with HGB of 6.8 amd HCT of 18.8. Results were results were reported ot oncoming day shift nurse, Remedios Talley LPN, to make Dr Main aware of when he comes to hospital this morning.
--- NOTE | 2018-10-20 23:22 | NUR ---
Patient called to nurses station and stated "that he was in pain and needed prn pain and nausea medication. Demerol 75 mg, iv and Phenergan 12.5 mg, iv was administered. No acute distress noted and call light is within reach. Will continue to monitor.
[2018-10-21 04:00] VITALS: BP 107/59; TEMP 98.3
[2018-10-21 05:10] LABS: PLATELET COUNT 268 K/uL (142-355)
[2018-10-21 05:48] LABS: POTASSIUM 4.5 mmol/L (3.6-5.2)
--- NOTE | 2018-10-21 05:48 | NUR ---
Lab called and reported Hgb of 6.2 and Hct of18. Results reported to oncoming day shift nurse to informed Dr Main of results.
[2018-10-21 08:00] VITALS: BP 111/56; TEMP 98.5
--- NOTE | 2018-10-21 08:15 | NUR ---
DR JOHNSON HERE. REPORTED LABS. NEW ORDERS.
--- NOTE | 2018-10-21 08:33 | NUR ---
PT MEDICATED FOR ABD PAIN PER'S ORDERS.
--- NOTE | 2018-10-21 09:30 | NUR ---
PT RESTING QUIETLY. NO C/O.
--- NOTE | 2018-10-21 11:47 | NUR ---
WAS GIVEN REPORT BY RUDY GASCA RN. TOOK OVER CARE OF PT
[2018-10-21 12:00] VITALS: BP 99/49; TEMP 98.6
[2018-10-21 16:00] VITALS: BP 116/61; TEMP 98.3
[2018-10-21 16:55] LABS: PLATELET COUNT 359 K/uL (142-355)
[2018-10-21 17:06] LABS: POTASSIUM 4.5 mmol/L (3.6-5.2)
[2018-10-21 19:57] VITALS: BP 112/53; TEMP 98.6
[2018-10-21 23:53] VITALS: BP 110/49; TEMP 98.7
[2018-10-22 03:58] VITALS: BP 118/60; TEMP 98.6
[2018-10-22 08:00] VITALS: BP 113/50; TEMP 98.3
--- NOTE | 2018-10-22 09:53 | NUR ---
0924 PT LEFT AMBULATORY WITH FAMILY. NO ACUTE DISTRESS NOTED.
== END 2018-10-22 09:20 | disposition home or self-care (01) | DRG 380 ==
LOC: ED 15:53 → MED/SURG 20:11
PROVIDERS: Internal Medicine; ADMIT Student in an Organized Health Care Education/Training Program
DX: K31.1 Adult hypertrophic pyloric stenosis (principal); D57.819 Other sickle-cell disorders with crisis, unspecified; J98.11 Atelectasis; J21.8 Acute bronchiolitis due to other specified organisms; K31.84 Gastroparesis; E80.6 Other disorders of bilirubin metabolism; R09.02 Hypoxemia; I99.8 Other disorder of circulatory system; M79.18 Myalgia, other site
CPT/HCPCS: 36415; 80048; 80053; 81000; 83690; 83735; 85007; 85027; 85044; 85610; 93005; 96360; 96375; 96376; 99284; J1170; J2175; J2270; J2405; J2550; J2765; J3490

== ENCOUNTER 2018-11-02 18:27 | Emergency (ER) | payer OTHER ==
[~2018-11-02] VITALS: Ht 175.3 cm; Wt 58.1 kg
[~2018-11-02 18:27] MED LIST changes: +AMBIEN5 MG PO; +METOCLOPRAMIDE10 MG PO
[2018-11-02 19:34] LABS: PLATELET COUNT 345 K/uL (142-355)
[2018-11-02 19:56] LABS: POTASSIUM 4.2 mmol/L (3.6-5.2)
[2018-11-02 22:30] VITALS: TEMP 98.8
[2018-11-02 23:55] VITALS: BP 136/80
== END 2018-11-02 23:56 | disposition short-term general hospital (02) ==
LOC: ED 18:27
PROVIDERS: Emergency Medicine
DX: D57.1 Sickle-cell disease without crisis (principal)
CPT/HCPCS: 36415; 80053; 81000; 85027; 85044; 96360; 96375; 96376; 99285; J1170; J2175; J2550

== ENCOUNTER 2018-11-11 10:46 | Inpatient (IN) | payer OTHER ==
[~2018-11-11] VITALS: Ht 175.3 cm; Wt 54.5 kg
[2018-11-11 11:57] LABS: POTASSIUM 4.4 mmol/L (3.6-5.2)
[2018-11-11 12:00] VITALS: BP 118/70; TEMP 98.2
[2018-11-11 12:19] LABS: PLATELET COUNT 321 K/uL (142-355)
[2018-11-11 16:00] VITALS: BP 172/59; TEMP 98.3
[2018-11-11 16:28] VITALS: BP 118/70; TEMP 98.2; Ht 175.3 cm; Wt 54.5 kg
[2018-11-11 20:00] VITALS: BP 100/60; TEMP 98
[2018-11-11 23:58] VITALS: BP 92/50; TEMP 97.7
[2018-11-12 04:00] VITALS: BP 110/57; TEMP 98.2
[2018-11-12 05:37] LABS: PLATELET COUNT 278 K/uL (142-355)
[2018-11-12 05:53] LABS: POTASSIUM 4.8 mmol/L (3.6-5.2)
[2018-11-12 08:00] VITALS: BP 99/45; TEMP 97.9
[2018-11-12 12:00] VITALS: BP 98/30; TEMP 97.8
[2018-11-12 16:00] VITALS: BP 111/47; TEMP 97.7
[2018-11-12 20:00] VITALS: BP 90/35; TEMP 98.4
[2018-11-12 23:55] VITALS: BP 100/41; TEMP 98.4
[2018-11-13 04:00] VITALS: BP 114/56; TEMP 98.4
[2018-11-13 05:36] LABS: PLATELET COUNT 277 K/uL (142-355)
[2018-11-13 05:53] LABS: POTASSIUM 4.4 mmol/L (3.6-5.2)
[2018-11-13 07:56] VITALS: BP 106/56; TEMP 97.9
[2018-11-13 12:00] VITALS: BP 121/70; TEMP 97.7
[2018-11-13 16:00] VITALS: BP 116/62; TEMP 98.3
[2018-11-13 20:00] VITALS: BP 118/62; TEMP 98.1
[2018-11-13 23:57] VITALS: BP 105/54; TEMP 97.9
[2018-11-14 04:00] VITALS: BP 120/70; TEMP 97.9
[2018-11-14 05:37] LABS: POTASSIUM 4.3 mmol/L (3.6-5.2)
[2018-11-14 06:42] LABS: PLATELET COUNT 289 K/uL (142-355)
[2018-11-14 08:00] VITALS: BP 146/74; TEMP 97.8
[2018-11-14 12:00] VITALS: BP 121/69; TEMP 98.4
[2018-11-14 16:00] VITALS: BP 123/61; TEMP 98.1
[2018-11-14 20:00] VITALS: BP 118/73; TEMP 97.7
[2018-11-15 00:27] VITALS: BP 127/69; TEMP 99.1
[2018-11-15 04:35] VITALS: BP 113/66; TEMP 98.3
[2018-11-15 05:09] LABS: PLATELET COUNT 299 K/uL (142-355)
[2018-11-15 05:20] LABS: POTASSIUM 3.9 mmol/L (3.6-5.2)
[2018-11-15 08:00] VITALS: BP 116/63; TEMP 97.9
== END 2018-11-15 11:00 | disposition home or self-care (01) | DRG 812 ==
LOC: MED/SURG 10:46
PROVIDERS: Family Medicine; ADMIT Internal Medicine
PROC: 02H633Z Insertion of Infusion Device into Right Atrium, Percutaneous Approach (ICD-10-PCS; principal; 2018-11-11)
DX: D57.819 Other sickle-cell disorders with crisis, unspecified (principal); E46 Unspecified protein-calorie malnutrition; E86.0 Dehydration; K31.84 Gastroparesis; Z86.711 Personal history of pulmonary embolism; E87.8 Other disorders of electrolyte and fluid balance, not elsewhere classified; D61.89 Other specified aplastic anemias and other bone marrow failure syndromes
CPT/HCPCS: 36415; 80053; 82150; 83690; 85007; 85027; 85044; C1751; J1642; J2175; J2550

== ENCOUNTER 2018-11-22 19:48 | Inpatient (IN) | payer OTHER ==
[~2018-11-22] VITALS: Ht 152.4 cm; Wt 57.8 kg
[2018-11-22 19:49] VITALS: BP 126/76; TEMP 99.1
[2018-11-22 21:14] LABS: PLATELET COUNT 306 K/uL (142-355)
[2018-11-22 21:18] LABS: POTASSIUM 4.1 mmol/L (3.6-5.2)
[2018-11-22 22:30] LABS: PARTIAL THROMBOPLASTIN TIME 27.4 SECONDS (24.5-33.6)
[2018-11-22 23:51] VITALS: BP 114/66; TEMP 97.9; Ht 152.4 cm; Wt 57.8 kg
[2018-11-23 04:00] VITALS: BP 101/49; TEMP 97.8
[2018-11-23 05:25] LABS: PLATELET COUNT 332 K/uL (142-355)
[2018-11-23 05:30] LABS: POTASSIUM 4.5 mmol/L (3.6-5.2)
[2018-11-23 08:00] VITALS: BP 90/59; TEMP 97
[2018-11-23 12:00] VITALS: BP 104/55; TEMP 97.3
[2018-11-23 16:00] VITALS: BP 98/53; TEMP 97.4
[2018-11-23 20:00] VITALS: BP 103/54; TEMP 97.8
[2018-11-24] VITALS: BP 110/62; TEMP 98.3
[2018-11-24 04:00] VITALS: BP 89/45; TEMP 97.6
[2018-11-24 08:00] VITALS: BP 98/48; TEMP 97.63
[2018-11-24 12:35] VITALS: BP 134/74; TEMP 98
[2018-11-24 16:00] VITALS: BP 152/78; TEMP 97.6
[2018-11-24 20:00] VITALS: BP 124/53; TEMP 98
[2018-11-25] VITALS: BP 135/75; TEMP 98.1
[2018-11-25 04:00] VITALS: BP 145/84; TEMP 97.8
[2018-11-25 08:00] VITALS: BP 118/73; TEMP 97.7
== END 2018-11-25 10:32 | disposition home or self-care (01) | DRG 811 ==
LOC: ED 19:48 → MED/SURG 22:04
PROVIDERS: Hospitalist; ADMIT Internal Medicine
DX: D57.819 Other sickle-cell disorders with crisis, unspecified (principal); K85.80 Other acute pancreatitis without necrosis or infection
CPT/HCPCS: 36415; 80048; 80053; 80307; 80320; 81000; 82150; 82747; 83690; 85014; 85018; 85027; 85044; 85610; 85730; 86850; 86900; 86901; 86922; 94760; 96365; 96375; 96376; 99284; J1170; J1650; J1956; J2175; J2405; J2543; J2550; J3490; P9016

== ENCOUNTER 2019-01-13 10:56 | Day surgery (SDC) | payer OTHER ==
[2019-01-13 13:34] LABS: PLATELET COUNT 335 K/uL (142-355)
[2019-01-13 13:37] LABS: POTASSIUM 5.6 mmol/L (3.6-5.2)
== END 2019-01-13 15:32 | disposition home or self-care (01) ==
LOC: OR 10:56
PROVIDERS: Internal Medicine Gastroenterology
PROC: 0DB68ZZ Excision of Stomach, Via Natural or Artificial Opening Endoscopic (ICD-10-PCS; principal; 2019-01-13)
DX: K29.50 Unspecified chronic gastritis without bleeding (principal); K57.10 Diverticulosis of small intestine without perforation or abscess without bleeding; K31.5 Obstruction of duodenum; K31.84 Gastroparesis; K21.0 Gastro-esophageal reflux disease with esophagitis; R10.13 Epigastric pain; R11.2 Nausea with vomiting, unspecified
CPT/HCPCS: 80053; 85027; J2001; J2405; J2704

== ENCOUNTER 2019-02-13 22:00 | Outpatient (CLI) | payer OTHER ==
[2019-02-14] MEDS ORDERED: PANTOPRAZOLE 40MG TA PO (02:46)
== END 2019-02-13 22:02 | disposition short-term general hospital (02) ==
LOC: AMB 22:00
DX: R56.9 Unspecified convulsions (principal); R41.82 Altered mental status, unspecified; D57.819 Other sickle-cell disorders with crisis, unspecified
CPT/HCPCS: A0425; A0427

== ENCOUNTER 2019-02-13 22:04 | Inpatient (IN) | payer OTHER ==
[~2019-02-13] VITALS: Ht 175.3 cm; Wt 59.2 kg
[2019-02-13 22:04] VITALS: BP 152/84; TEMP 98.8
[2019-02-13 22:42] LABS: PLATELET COUNT 288 K/uL (142-355)
[2019-02-13 22:51] LABS: POTASSIUM 3.6 mmol/L (3.6-5.2)
[2019-02-14 02:10] VITALS: BP 131/68; TEMP 99.3; Ht 175.3 cm; Wt 59.2 kg
[2019-02-14] MEDS ORDERED: PANTOPRAZOLE 40MG TA PO (02:46)
[2019-02-14 04:00] VITALS: BP 101/56; TEMP 98
[2019-02-14 08:00] VITALS: BP 118/55; TEMP 97.8
[2019-02-14 12:00] VITALS: BP 109/65; TEMP 97.9
[2019-02-14 16:00] VITALS: BP 109/88; TEMP 97.9
[2019-02-14 20:00] VITALS: BP 108/53; TEMP 97.6
[2019-02-15] VITALS: BP 145/80; TEMP 98.1
[2019-02-15 04:00] VITALS: BP 122/61; TEMP 98.3
[2019-02-15 05:55] LABS: POTASSIUM 4.2 mmol/L (3.6-5.2)
[2019-02-15 06:36] LABS: PLATELET COUNT 234 K/uL (142-355)
[2019-02-15 08:00] VITALS: BP 112/58; TEMP 98.4
[2019-02-15 12:00] VITALS: BP 113/45; TEMP 98
[2019-02-15 16:00] VITALS: BP 137/71; TEMP 98.1
[2019-02-15 20:00] VITALS: BP 136/79; TEMP 98.1
[2019-02-16] VITALS: BP 116/53; TEMP 97.9
[2019-02-16 04:00] VITALS: BP 121/62; TEMP 98
[2019-02-16 05:26] LABS: PLATELET COUNT 260 K/uL (142-355)
[2019-02-16 05:39] LABS: POTASSIUM 4.8 mmol/L (3.6-5.2)
[2019-02-16 08:00] VITALS: BP 120/58; TEMP 97.4
[2019-02-16 12:00] VITALS: BP 117/50; TEMP 98.7
[2019-02-16 16:00] VITALS: BP 123/66; TEMP 98.5
[2019-02-16 20:00] VITALS: BP 121/65; TEMP 99.3
[2019-02-17] VITALS: BP 139/62; TEMP 98.7
[2019-02-17 04:00] VITALS: BP 122/56; TEMP 98.3
[2019-02-17 05:13] LABS: PLATELET COUNT 249 K/uL (142-355)
[2019-02-17 08:00] VITALS: BP 132/61; TEMP 98.3
[2019-02-17 12:00] VITALS: BP 128/63; TEMP 98.2
== END 2019-02-17 12:20 | disposition home or self-care (01) | DRG 917 ==
LOC: ED 22:15 → MED/SURG 23:00
PROVIDERS: Emergency Medicine; Internal Medicine; ADMIT Family Medicine
DX: T41.291A Poisoning by other general anesthetics, accidental (unintentional), initial encounter (principal); D57.819 Other sickle-cell disorders with crisis, unspecified; E87.2 Acidosis; Y92.89 Other specified places as the place of occurrence of the external cause; M79.18 Myalgia, other site; K21.9 Gastro-esophageal reflux disease without esophagitis; D63.8 Anemia in other chronic diseases classified elsewhere; I11.9 Hypertensive heart disease without heart failure
CPT/HCPCS: 36415; 36416; 36600; 80053; 80307; 81000; 82805; 85007; 85027; 85044; 93005; 94760; 96360; 96365; 96366; 96375; 96376; 99285; J0696; J1170; J1885; J2175; J2310; J2550; J3490

== ENCOUNTER 2019-03-19 10:19 | Outpatient (CLI) | payer OTHER ==
[2019-03-19 10:53] LABS: PLATELET COUNT 243 K/uL (142-355)
[2019-03-19 10:56] LABS: POTASSIUM 4.1 mmol/L (3.6-5.2)
== END 2019-03-19 19:53 | disposition home or self-care (01) ==
LOC: LABW 10:19
PROVIDERS: Internal Medicine Hematology & Oncology
DX: D57.1 Sickle-cell disease without crisis (principal)
CPT/HCPCS: 36415; 80053; 82043; 82570; 85027; 85044

== ENCOUNTER 2019-03-22 09:03 | Outpatient (CLI) | payer OTHER | END 2019-03-22 20:10 | disposition home or self-care (01) | LOC: RESP 09:03 | DX: R40.4 Transient alteration of awareness (principal) ==

== ENCOUNTER 2019-04-07 09:12 | Day surgery (SDC) | payer OTHER | END 2019-04-07 16:07 | disposition home or self-care (01) | LOC: OR 09:12 | PROC: 0DB68ZZ Excision of Stomach, Via Natural or Artificial Opening Endoscopic (ICD-10-PCS; principal; 2019-04-07) | PROC: 0D798ZZ Dilation of Duodenum, Via Natural or Artificial Opening Endoscopic (ICD-10-PCS; 2019-04-07) | DX: K31.5 Obstruction of duodenum (principal); K29.50 Unspecified chronic gastritis without bleeding; R11.2 Nausea with vomiting, unspecified; K21.9 Gastro-esophageal reflux disease without esophagitis ==

== ENCOUNTER 2019-04-13 18:55 | Inpatient (IN) | payer OTHER ==
[~2019-04-13] VITALS: Ht 175.3 cm; Wt 57.7 kg
[2019-04-13 19:26] VITALS: BP 106/63; TEMP 100.4
[2019-04-13 20:31] LABS: PLATELET COUNT 211 K/uL (142-355)
[2019-04-13 20:37] LABS: POTASSIUM 4.1 mmol/L (3.6-5.2)
[2019-04-13 22:33] VITALS: BP 117/57; TEMP 99.2; Ht 175.3 cm; Wt 57.7 kg
[2019-04-14] VITALS: BP 117/57; TEMP 99.2
[2019-04-14 04:00] VITALS: BP 89/41; TEMP 98.6
[2019-04-14 06:11] LABS: PLATELET COUNT 203 K/uL (142-355)
[2019-04-14 06:21] LABS: POTASSIUM 3.9 mmol/L (3.6-5.2)
[2019-04-14 08:41] VITALS: BP 100/45; TEMP 98.8
--- NOTE | 2019-04-14 09:59 | NUR ---
FLU SWAB COLLECTED AND SENT TO LAB
--- NOTE | 2019-04-14 12:51 | NUR ---
CALLED TO PT ROOM. PT C/O PAIN AT IV SITE. IV INFILTRATED. IV DC TIP INTACT
[2019-04-14 13:26] VITALS: BP 96/48; TEMP 98.7
--- NOTE | 2019-04-14 13:33 | NUR ---
IV ATTEMPT X 2 WITH NO SUCCESS.
[2019-04-14 16:34] VITALS: BP 114/63; TEMP 98.5
[2019-04-14] MEDS ORDERED: OMEP20CA PO (16:40)
[2019-04-14 20:00] VITALS: BP 117/66; TEMP 98.7
[2019-04-15] VITALS: BP 121/61; TEMP 98.4
[2019-04-15 04:00] VITALS: BP 93/33; TEMP 97.5
[2019-04-15 05:39] LABS: PLATELET COUNT 198 K/uL (142-355)
--- NOTE | 2019-04-15 05:50 | NUR ---
CRITICAL CALL FROM MODE IN LAB. HEMATOCRIT 17.5, HEMOGLOBIN 6.5.
[2019-04-15 06:06] LABS: POTASSIUM 3.9 mmol/L (3.6-5.2)
[2019-04-15 08:38] VITALS: BP 91/37; TEMP 97.7
[2019-04-15 12:17] VITALS: BP 98/50; TEMP 98.3
[2019-04-15 20:00] VITALS: BP 95/50; TEMP 98.4
[2019-04-16] VITALS: BP 103/40; TEMP 98.3
[2019-04-16 04:00] VITALS: BP 99/45; TEMP 98.4
[2019-04-16 08:00] VITALS: BP 101/43; TEMP 97.7
[2019-04-16 08:38] LABS: PLATELET COUNT 177 K/uL (142-355)
--- NOTE | 2019-04-16 09:00 | NUR ---
PATIENT LYING IN BED WITH EYES CLOSED, BUT DID OPEN HIS EYES TO TALK TO THIS NURSE. PATIENT WAS INFORMED THAT HE WOULD BE DISCHARGED TO HOME THIS AM, AND NEEDED TO CALL FAMILY MEMBER AT THIS TIME FOR TRANSPORTATION. NO ACUTE DISTRESS NOTED. CALL LIGHT WITHIN REACH. WILL CONTINUE TO MONITOR.
--- NOTE | 2019-04-16 09:33 | NUR ---
PT WHEELED OUT WITH FAMILY
== END 2019-04-16 09:40 | disposition home or self-care (01) | DRG 812 ==
LOC: ED 18:55 → MED/SURG 21:19
PROVIDERS: Internal Medicine; ADMIT Family Medicine
DX: D57.819 Other sickle-cell disorders with crisis, unspecified (principal); E86.0 Dehydration; R11.2 Nausea with vomiting, unspecified
CPT/HCPCS: 36415; 80053; 85007; 85027; 85044; 87502; 93005; 94760; 96360; 96375; 96376; 99284; J2175; J2550

== ENCOUNTER 2019-04-20 14:13 | Outpatient (CLI) | payer OTHER ==
[~2019-04-20 14:13] MED LIST changes: +OMEP20CA PO
[2019-04-20 14:50] LABS: PLATELET COUNT 290 K/uL (142-355)
[2019-04-20 15:00] LABS: POTASSIUM 4.2 mmol/L (3.6-5.2)
== END 2019-04-20 22:01 | disposition home or self-care (01) ==
LOC: LABW 14:13
PROVIDERS: Internal Medicine
DX: D57.1 Sickle-cell disease without crisis (principal)
CPT/HCPCS: 36415; 80053; 85027

== ENCOUNTER 2019-05-05 18:09 | Emergency (ER) | payer OTHER ==
[~2019-05-05] VITALS: Ht 175.3 cm; Wt 61.2 kg
[2019-05-05 19:38] VITALS: BP 132/54; TEMP 98.1
== END 2019-05-05 19:38 | disposition home or self-care (01) ==
LOC: ED 18:09
DX: S39.012A Strain of muscle, fascia and tendon of lower back, initial encounter (principal); X50.9XXA Other and unspecified overexertion or strenuous movements or postures, initial encounter; Y93.F2 Activity, caregiving, lifting; Y92.239 Unspecified place in hospital as the place of occurrence of the external cause
CPT/HCPCS: 96372; 99283; J2175; J2405

== ENCOUNTER 2019-07-27 12:46 | Outpatient (CLI) | payer OTHER ==
[2019-07-27 13:26] LABS: PLATELET COUNT 241 K/uL (142-355)
[2019-07-27 13:36] LABS: POTASSIUM 5.2 mmol/L (3.6-5.2)
== END 2019-07-27 21:49 | disposition home or self-care (01) ==
LOC: LABW 12:46
PROVIDERS: Internal Medicine Hematology & Oncology
DX: D57.1 Sickle-cell disease without crisis (principal)
CPT/HCPCS: 36415; 80053; 82728; 85027; 85044

== ENCOUNTER 2019-09-01 13:52 | Emergency (ER) | payer OTHER ==
[~2019-09-01] VITALS: Ht 175.3 cm; Wt 59.9 kg
[2019-09-01 13:52] VITALS: TEMP 98.1
[2019-09-01 14:23] LABS: PLATELET COUNT 230 K/uL (142-355)
[2019-09-01 14:28] LABS: POTASSIUM 4.2 mmol/L (3.6-5.2); SODIUM 139 mmol/L (136-145)
[2019-09-01 15:57] VITALS: BP 98/47
== END 2019-09-01 15:59 | disposition home or self-care (01) ==
LOC: ED 13:52
PROVIDERS: Emergency Medicine
DX: I49.8 Other specified cardiac arrhythmias (principal)
CPT/HCPCS: 80053; 82550; 82553; 84484; 85007; 85027; 93005; 99284

== ENCOUNTER 2019-11-12 11:47 | Outpatient (CLI) | payer OTHER ==
[2019-11-12 12:25] LABS: PLATELET COUNT 290 K/uL (142-355)
[2019-11-12 12:34] LABS: POTASSIUM 4.5 mmol/L (3.6-5.2)
== END 2019-11-12 23:57 | disposition home or self-care (01) ==
LOC: LABW 11:47
PROVIDERS: Internal Medicine Hematology & Oncology
DX: D57.1 Sickle-cell disease without crisis (principal)
CPT/HCPCS: 36415; 80053; 83615; 85027; 85044

== ENCOUNTER 2019-12-20 18:21 | Outpatient (CLI) | payer OTHER ==
[2019-12-20 19:22] LABS: PLATELET COUNT 270 K/uL (142-355)
== END 2019-12-20 22:38 | disposition home or self-care (01) ==
LOC: LAB 18:21
PROVIDERS: Internal Medicine Hematology & Oncology
DX: D57.1 Sickle-cell disease without crisis (principal)
CPT/HCPCS: 85027

== ENCOUNTER 2019-12-26 21:47 | Inpatient (IN) | payer OTHER ==
[~2019-12-26] VITALS: Ht 175.3 cm; Wt 63.0 kg
[2019-12-26 22:10] VITALS: BP 123/72; TEMP 99.2
[2019-12-26 22:57] LABS: PLATELET COUNT 147 K/uL (142-355)
[2019-12-26 23:21] LABS: PARTIAL THROMBOPLASTIN TIME 26.1 SECONDS (24.5-33.6)
[2019-12-26 23:51] LABS: POTASSIUM 5.1 mmol/L (3.6-5.2)
[2019-12-27] VITALS (7 sets, daily range): BP systolic 91–121; BP diastolic 45–69; TEMP 98–99; Ht 175.3 cm; Wt 63.0 kg
[2019-12-28] VITALS: BP 110/56; TEMP 98.1
[2019-12-28 04:00] VITALS: BP 107/65; TEMP 99
[2019-12-28 05:04] LABS: PLATELET COUNT 235 K/uL (142-355)
[2019-12-28 05:38] LABS: POTASSIUM 4.7 mmol/L (3.6-5.2)
[2019-12-28 08:00] VITALS: BP 112/66; TEMP 98.3
[2019-12-28 12:00] VITALS: BP 119/44; TEMP 98.3
[2019-12-28 16:00] VITALS: BP 107/60; TEMP 98.1
[2019-12-28 20:00] VITALS: BP 94/49; TEMP 98.3
[2019-12-29] VITALS: BP 98/47; TEMP 98.4
[2019-12-29 04:00] VITALS: BP 108/43; TEMP 98.3
[2019-12-29 08:00] VITALS: BP 106/54; TEMP 98
== END 2019-12-29 16:15 | disposition home or self-care (01) | DRG 812 ==
LOC: ED 21:47 → PCU 12-27 00:24 → MED/SURG 12-27 17:00
PROVIDERS: Internal Medicine; ADMIT Hospitalist
DX: D57.818 Other sickle-cell disorders with crisis with other specified complication (principal); K21.9 Gastro-esophageal reflux disease without esophagitis
CPT/HCPCS: 36415; 80053; 81000; 85027; 85044; 85610; 85730; 94760; 96360; 96365; 96375; 96376; 99284; J1170; J1200; J1650; J1885; J1956; J2175; J2405; J2550

== ENCOUNTER 2020-02-24 08:52 | Emergency (ER) | payer OTHER ==
[~2020-02-24] VITALS: Ht 175.3 cm; Wt 61.2 kg
[2020-02-24 08:52] VITALS: TEMP 97.8
[2020-02-24 09:49] LABS: PLATELET COUNT 208 K/uL (142-355)
[2020-02-24 10:02] LABS: POTASSIUM 5.1 mmol/L (3.6-5.2)
[2020-02-24 11:55] VITALS: BP 123/69
== END 2020-02-24 11:55 | disposition home or self-care (01) ==
LOC: ED 08:52
DX: D57.00 Hb-SS disease with crisis, unspecified (principal)
CPT/HCPCS: 80053; 85007; 85027; 96360; 96375; 96376; 99284; J2175; J2405

== ENCOUNTER 2020-02-24 16:05 | Emergency (ER) | payer OTHER ==
[~2020-02-24] VITALS: Ht 175.3 cm; Wt 61.2 kg
[2020-02-24 16:05] VITALS: TEMP 98.2
[2020-02-24 17:07] LABS: PLATELET COUNT 221 K/uL (142-355)
[2020-02-24 18:55] VITALS: BP 114/63
== END 2020-02-24 18:55 | disposition home or self-care (01) ==
LOC: ED 16:06
DX: D57.00 Hb-SS disease with crisis, unspecified (principal)
CPT/HCPCS: 85027; 96360; 96372; 96375; 99284; J2175

== ENCOUNTER 2020-02-25 14:34 | Inpatient (IN) | payer OTHER ==
[~2020-02-25] VITALS: Ht 175.3 cm; Wt 59.2 kg
[2020-02-25 14:40] VITALS: BP 129/40; TEMP 98.6
[2020-02-25 15:26] VITALS: BP 144/77
[2020-02-25 15:33] VITALS: BP 144/77
[2020-02-25 15:33] LABS: POTASSIUM 4.9 mmol/L (3.6-5.2); SODIUM 142 mmol/L (136-145)
[2020-02-25 15:39] LABS: PLATELET COUNT 278 K/uL (142-355)
[2020-02-25 15:57] LABS: PARTIAL THROMBOPLASTIN TIME 21.2 SECONDS (24.5-33.6)
[2020-02-25 16:19] VITALS: BP 137/70
[2020-02-25 19:55] VITALS: BP 137/73; TEMP 98; Ht 175.3 cm; Wt 59.2 kg
[2020-02-25 20:00] VITALS: BP 109/59; TEMP 98.1
[2020-02-26] VITALS: BP 97/49; TEMP 98.6
[2020-02-26] MEDS ORDERED: MORPHINE SUL15 MG PO (01:42)
[2020-02-26 04:00] VITALS: BP 136/61; TEMP 97.9
[2020-02-26 06:59] LABS: PLATELET COUNT 276 K/uL (142-355)
[2020-02-26 07:18] LABS: POTASSIUM 4.8 mmol/L (3.6-5.2)
[2020-02-26 08:00] VITALS: BP 117/53; TEMP 98
[2020-02-26 12:00] VITALS: BP 120/63; TEMP 97.7
[2020-02-26 16:00] VITALS: BP 120/57; TEMP 97.8
[2020-02-26 20:00] VITALS: BP 120/52; TEMP 98.2
[2020-02-27] VITALS: BP 107/50; TEMP 98.7
[2020-02-27 04:00] VITALS: BP 125/55; TEMP 98.2
[2020-02-27 08:00] VITALS: BP 129/69; TEMP 98.1
[2020-02-27 08:08] LABS: PLATELET COUNT 289 K/uL (142-355)
[2020-02-27 08:20] LABS: POTASSIUM 4.4 mmol/L (3.6-5.2)
[2020-02-27 12:00] VITALS: BP 116/55; TEMP 98.3
[2020-02-27 16:00] VITALS: BP 115/64; TEMP 98.5
[2020-02-27 20:00] VITALS: BP 115/58; TEMP 98.1
[2020-02-28] VITALS: BP 126/54; TEMP 98.6
[2020-02-28 04:11] VITALS: BP 144/77; TEMP 98.2
[2020-02-28 05:23] LABS: PLATELET COUNT 259 K/uL (142-355)
[2020-02-28 05:38] LABS: POTASSIUM 4.6 mmol/L (3.6-5.2)
[2020-02-28 08:00] VITALS: BP 130/74; TEMP 98.3
[2020-02-28 12:00] VITALS: BP 120/54; TEMP 98.2
[2020-02-28 16:00] VITALS: BP 118/61; TEMP 98.4
[2020-02-28 20:00] VITALS: BP 115/61; TEMP 98.6
[2020-02-29] VITALS (7 sets, daily range): BP systolic 112–131; BP diastolic 54–92; TEMP 98–99.3
[2020-02-29 06:10] LABS: PLATELET COUNT 287 K/uL (142-355)
[2020-02-29 06:16] LABS: POTASSIUM 4.6 mmol/L (3.6-5.2)
[2020-03-01 04:22] VITALS: BP 110/61; TEMP 99
[2020-03-01 05:10] LABS: PLATELET COUNT 255 K/uL (142-355)
[2020-03-01 05:21] LABS: POTASSIUM 3.9 mmol/L (3.6-5.2)
[2020-03-01 08:00] VITALS: BP 143/70; TEMP 98
== END 2020-03-01 15:00 | disposition home or self-care (01) | DRG 812 ==
LOC: ED 14:34 → MED/SURG 16:15
PROVIDERS: Internal Medicine Endocrinology, Diabetes & Metabolism; ADMIT Hospitalist
DX: D57.818 Other sickle-cell disorders with crisis with other specified complication (principal); M54.5 Low back pain; G89.4 Chronic pain syndrome; I10 Essential (primary) hypertension
CPT/HCPCS: 36415; 80048; 80053; 80320; 81000; 82150; 82550; 83690; 83880; 84484; 85007; 85027; 85044; 85610; 85730; 93005; 94760; 96360; 96372; 96375; 96376; 99284; J1650; J2175; J2270; J2405; J2543; J2550; J3490

== ENCOUNTER 2020-03-06 18:45 | Observation (INO) | payer OTHER ==
[2020-03-06] VITALS (8 sets, daily range): BP systolic 102–121; BP diastolic 51–66; TEMP 98–99.4
[~2020-03-06] VITALS: Ht 175.3 cm; Wt 58.3 kg
[~2020-03-06 18:45] MED LIST changes: +MORPHINE SUL15 MG PO
[2020-03-06 20:22] LABS: PLATELET COUNT 262 K/uL (142-355)
[2020-03-06 20:41] LABS: POTASSIUM 3.9 mmol/L (3.6-5.2)
[2020-03-07] VITALS (20 sets, daily range): BP systolic 93–115; BP diastolic 39–65; TEMP 97.4–99.4; Ht 175.3 cm; Wt 58.3 kg
[2020-03-08] VITALS: BP 107/59; TEMP 98
[2020-03-08 03:34] VITALS: TEMP 1
[2020-03-08 04:00] VITALS: BP 131/57; TEMP 97.9
[2020-03-08 08:00] VITALS: BP 121/37; TEMP 97.7
[2020-03-08 12:00] VITALS: BP 108/53; TEMP 97.9
[2020-03-08 13:03] LABS: PLATELET COUNT 318 K/uL (142-355)
== END 2020-03-08 15:20 | disposition home or self-care (01) ==
LOC: ED 18:45 → MED/SURG 21:45
PROVIDERS: ADMIT Emergency Medicine Emergency Medical Services; ATTEND Internal Medicine
DX: D57.818 Other sickle-cell disorders with crisis with other specified complication (principal); D72.828 Other elevated white blood cell count; I95.89 Other hypotension; R09.02 Hypoxemia
CPT/HCPCS: 36415; 36430; 80053; 81000; 85007; 85014; 85018; 85027; 86850; 86900; 86901; 86922; 87635; 96360; 96361; 96365; 96367; 96375; 99220; 99284; G0378; J1335; J2175; J2270; J2550; P9016; U0003

== ENCOUNTER 2020-05-04 12:35 | Outpatient (CLI) | payer OTHER ==
[2020-05-04 13:17] LABS: PLATELET COUNT 326 K/uL (142-355)
[2020-05-04 14:27] LABS: POTASSIUM 4.6 mmol/L (3.6-5.2)
== END 2020-05-04 21:52 | disposition home or self-care (01) ==
LOC: LABW 12:35
PROVIDERS: ATTEND Internal Medicine Hematology & Oncology
DX: D57.1 Sickle-cell disease without crisis (principal)
CPT/HCPCS: 36415; 80053; 83615; 85027; 85044

== ENCOUNTER 2020-05-14 20:10 | Emergency (ER) | payer OTHER ==
[~2020-05-14] VITALS: Ht 175.3 cm; Wt 58.1 kg
[2020-05-14 20:59] LABS: POTASSIUM 4.7 mmol/L (3.6-5.2)
[2020-05-14 23:29] VITALS: BP 104/48; TEMP 98.3
== END 2020-05-14 23:33 | disposition home or self-care (01) ==
LOC: ED 20:10
PROVIDERS: Family Medicine
DX: D57.00 Hb-SS disease with crisis, unspecified (principal); E86.0 Dehydration
CPT/HCPCS: 80053; 85027; 85044; 96360; 96375; 96376; 99284; J1170; J2175; J2405; J3490

== ENCOUNTER 2020-05-16 21:49 | Inpatient (IN) | payer OTHER ==
[~2020-05-16] VITALS: Ht 175.3 cm; Wt 59.4 kg
[2020-05-16 22:06] VITALS: BP 114/65; TEMP 99.7
[2020-05-16 23:00] VITALS: BP 103/42
[2020-05-16 23:05] LABS: PLATELET COUNT 143 K/uL (142-355)
[2020-05-16 23:11] LABS: POTASSIUM 4.5 mmol/L (3.6-5.2)
[2020-05-16 23:30] VITALS: BP 97/41
[2020-05-17] VITALS (7 sets, daily range): BP systolic 88–120; BP diastolic 42–64; TEMP 97.9–98.9; Ht 175.3 cm; Wt 59.4 kg
[2020-05-17 05:24] LABS: PLATELET COUNT 121 K/uL (142-355)
[2020-05-17 05:38] LABS: POTASSIUM 4.3 mmol/L (3.6-5.2)
[2020-05-17] MEDS ORDERED: OXBRYTA PO (08:06)
--- NOTE | 2020-05-17 20:09 | NUR ---
DR. MICHELE VISITED. PT NEW AD,IT TO ROOM 110. PT IN WITH COMPLAINT OF NAUSEA AND VOMITING. DEHYDRATION.
--- NOTE | 2020-05-17 21:35 | NUR ---
COMPLAINTS OF PAIN. PT IS SICKLE CELL DIAGONIS. MEDICATED WITH DEMEROL 75 MG IVSP AND PHENERGAN 25 MG IVSP.
[2020-05-18] VITALS: BP 91/45; TEMP 98
--- NOTE | 2020-05-18 01:20 | NUR ---
ASSISTED PT WITH BEDPAN. URINATED APPROX 50 ML OF CLEAR URINE.
[2020-05-18 04:27] VITALS: BP 93/47; TEMP 98
[2020-05-18 04:48] LABS: PLATELET COUNT 109 K/uL (142-355)
[2020-05-18 04:50] LABS: POTASSIUM 4.1 mmol/L (3.6-5.2)
--- NOTE | 2020-05-18 06:46 | NUR ---
PT WAS GIVEN DEMEROL 75MG AND PHENERGAN 25 MG FOR PAIN.
[2020-05-18 08:00] VITALS: BP 97/49; TEMP 97.6
[2020-05-18 12:00] VITALS: BP 115/59; TEMP 97.6
[2020-05-18 16:00] VITALS: BP 119/63; TEMP 97.9
[2020-05-18 20:00] VITALS: BP 114/65; TEMP 97.4
--- NOTE | 2020-05-18 23:48 | NUR ---
PT WAS MEDICATED WITH DEMEROL 75MG AND PHENERGAN 25 MG IVSP. PT HAS SICKLE CELL ANEMIA. COMPLAINTS OF SHOULDER BONE PAIN.
[2020-05-19 00:24] VITALS: BP 110/69; TEMP 98.4
[2020-05-19 04:19] VITALS: BP 122/68; TEMP 97.8
--- NOTE | 2020-05-19 04:40 | NUR ---
COMPLAINTS OF PAIN. MEDICATED WITH DEMEROL 75MG AND PHENERGAN 25 MG IVSP.
[2020-05-19 05:08] LABS: PLATELET COUNT 120 K/uL (142-355)
[2020-05-19 05:28] LABS: POTASSIUM 4.1 mmol/L (3.6-5.2)
--- NOTE | 2020-05-19 07:30 | NUR ---
ENTERED PT'S ROOM, PT IS RESTING WITH EYES CLOSED ON RT SIDE WITH LIGHTS OFF. BREATHING IS EVEN AND NONLABORED, PT IS SHOWING NO SIGNS OF DISTRESS. IV IS INTACT WITH D5NS RUNNING AT 150. BED IS LOCKED AND IN THE LOWEST POSITION.
[2020-05-19 08:00] VITALS: BP 111/51; TEMP 98.1
--- NOTE | 2020-05-19 09:15 | NUR ---
IN PT'S ROOM GIVING MORNING MEDICATIONS. PT ASKS WHEN HE CAN HAVE MORE PAIN MEDICINE THAT HE IS IN PAIN. IT HAS BEEN 4 HOURS SINCE LAST DOSE WAS GIVEN. PRN DOSE OF MEPERIDINE 75MG AND PROMETHAZINE 25MG WAS GIVEN.
--- NOTE | 2020-05-19 11:55 | NUR ---
ENTERED PT'S ROOM TO HANG NEW BAG OF FLUIDS. PT IS IN LF ON CELL PHONE. PT DENIES ANY PAIN/NEEDS AT THIS TIME.
[2020-05-19 12:00] VITALS: BP 117/59; TEMP 98.1
--- NOTE | 2020-05-19 14:00 | NUR ---
PT CALLED TO NURSE'S STATION STATING THAT HIS IV WAS NO LONGER GOOD. FOLDED CLOTH TAPER WENT TO PT'S ROOM, IV HAD INFILTRATED IN PT'S NECK. IV WAS REMOVED AND A NEW IV ATTEMPTED. AFTER TWO FAILED ATTEMPTS BY DELFIN RAYA RN, IT WAS DECIDED TO CALL FOR ANOTHER RN TO TRY. MD HAS BEEN NOTIFIED, WILL CONTINUE TO MONITOR WHILE WAITING FOR RN TO ARRIVE.
--- NOTE | 2020-05-19 15:00 | NUR ---
PT IS RESTING WITH EYES CLOSED IN HF. BREATHING IS EVEN AND NONLABORED. SIDERAILS UP X2. NAD IS NOTED AT THIS TIME.
[2020-05-19 16:00] VITALS: BP 100/54; TEMP 98.2
--- NOTE | 2020-05-19 16:30 | NUR ---
PT HAS GAINED A SUCCESSFUL IV, 24G IN THE RT HAND. DELFIN DE LA TORRE RN ATTEMPTED TWICE, LONG SINGER RN ATTEMPTED THREE TIMES. SUCCESSFUL IV WAS STARTED BY LONG SINGER RN. IV FLUSHED SUCCESFULLY WITHOUT DIFFICULTY. IV FLUIDS HAVE BEEN RESTARTED AT A RATE OF 150. WILL CONTINUE TO MONITOR SITE CAREFULLY.
--- NOTE | 2020-05-19 18:00 | NUR ---
ENTERED PT'S ROOM, PT WAS GRIMACING AND SIGHING. WHEN ASKED IF HE WAS IN PAIN HE STATED YES. PT WAS GIVEN PRN DOSE OF MEPERIDINE 75MG AND PROMETHAZINE 25MG. WHEN GIVING THE MEDICINE THROUGH THE IV PATIENT STATED THAT "IT WEBB". IF IV SITE INFILTRATES, MAY LEAVE OUT PER DOCTOR'S ORDER AND MEDICATIONS GIVEN THROUGH IM INJECTIONS.
--- NOTE | 2020-05-19 18:32 | NUR ---
PT CALLED TO NURSE'S STATION, INTERMEDIATE ACCOUNTANT WENT TO CHECK AND NEW IV HAS INFILTRATED. IV HAS BEEN REMOVED WITH CATHETER INTACT.
[2020-05-19 20:00] VITALS: BP 125/69; TEMP 98.1
--- NOTE | 2020-05-19 20:15 | NUR ---
ENTERED PATIENT'S ROOM. PATIENT RESTING QUIETLY IN BED WATCHING TV. RESPIRATIONS ARE EVEN AND UNLABORED. PATIENT DENIES ANY PAIN AT THIS TIME. HE DOES HAVE A SMALL WOUND TO THE LEFT ANKLE. MEASUREMENTS ARE FOLLOWS: 1.5CM IN LENGTH X 0.5CM IN WIDTH. NO DRAINAGE OR ODOR NOTED. PATIENT PREFERS TO DO HIS OWN DRESSING CHANGE. VASELINE, GAUZE, KERLIX AND GABBY BANDAGE SUPPLIED TO PATIENT. DENIES ANY OTHER CONCERNS OR COMPLAINTS AT THIS TIME. BED LOCKED AND IN LOWEST POSITION. CALL LIGHT WITHIN EASY REACH.
--- NOTE | 2020-05-19 20:17 | NUR ---
SPOKE TO DR. DSOUZA VIA PHONE AT THIS TIME. PROTONIX 40MG AND ROCEPHIN 1,000MG ORDERED TO BE GIVEN IV. NEW ORDERS GIVEN TO CHANGE PROTONIX TO PO AND ROCEPHIN TO IM. READ BACK AND VERIFIED. NO NEW ORDERS GIVEN AT THIS TIME.
--- NOTE | 2020-05-19 23:15 | NUR ---
IN TO CHECK ON PATIENT. HE DOES C/O PAIN. DEMEROL 75MG GIVEN IM INTO LEFT DELTOID. PHENERGAN 25MG IM GIVEN INTO RIGHT DELTOID. PATIENT TOLERATED WELL. CALL LIGHT WITHIN EASY REACH.
[2020-05-20] VITALS: BP 124/64; TEMP 98.5
--- NOTE | 2020-05-20 03:30 | NUR ---
PATIENT LYING IN BED RESTING QUIETLY. NAD NOTED. HE DENIES PAIN AT THIS TIME AND STATES HE DOES NOT NEED ANYTHING FOR PAIN RIGHT NOW. CALL LIGHT WITHIN REACH.
[2020-05-20 04:00] VITALS: BP 111/57; TEMP 98.5
--- NOTE | 2020-05-20 04:30 | NUR ---
PATIENT CALLED REQUESTING SOMETHING FOR PAIN. DEMEROL 75MG GIVEN IM LEFT VL. PHERNERGAN 25MG IM INTO LEFT DG. ROCEPHIN GIVEN IM INTO RIGHT VL. PATIENT TOLERATED WELL. CALL LIGHT WITHIN EASY REACH.
--- NOTE | 2020-05-20 06:12 | NUR ---
PATIENT LYING IN BED ON HIS PHONE. HE STATES THAT HE FEELS BETTER. NO OTHER CONCERNS NOTED AT THIS TIME. BED LOCKED AND IN LOWEST POSITION. CALL LIGHT WITHIN EASY REACH.
[2020-05-20 08:00] VITALS: BP 115/58; TEMP 97.8
--- NOTE | 2020-05-20 08:00 | NUR ---
IN PT RM FOR MORNING ASSESSMENT, PT LYING IN LF ON RT SIDE, NAD NOTED, PT STATES HE IS IN NO PAIN THIS AM, NONLABORED BREATHING, PT HAS NO COMPLAINTS THIS AM, CHRONIC ULCER TO LT OUTER ANKLE WRAPPED AND INTACT UNABLE TO VISUALIZE AREA, PT HAS NO NEEDS AT THIS TIME, WILL CONTINUE TO MONITOR, CALL LIGHT WITHIN REACH
--- NOTE | 2020-05-20 08:00 | NUR ---
IN PT'S ROOM, PT IS RESTING COMFORTABLY IN LF WITH LIGHTS OFF. PT CURRENTLY DENIES ANY PAIN AND STATES THAT HE IS READY TO GO HOME. INFORMED THAT MD IS NOT IN YET BUT PROCESSING TECH WILL NOTIFY MD OF PT'S STATUS.
--- NOTE | 2020-05-20 09:30 | NUR ---
EDUCATED PT ON DISCHARGE INSTRUCTIONS, PT VERBALIZED UNDERSTANDING. IV WAS DISCONTINUED YESTERDAY. PT DENIES PAIN/ANY NEEDS AT THIS TIME.
--- NOTE | 2020-05-20 09:53 | NUR ---
PT WALKED OUT OF THE HOSPITAL, SENIOR TELLER WALKED WITH PT OUT. PT CARRIED PERSONAL BELONGINGS TO PERSONAL VEHICLE. PT WAS CARRIED HOME BY HIS MOTHER. NAD WAS NOTED DURING DISCHARGE FROM THE HOSPITAL, PT'S GAIT WAS STEADY, BREATHING EVEN AND NONLABORED, AND DENIED ANY PAIN.
--- NOTE | 2020-05-20 09:56 | NUR ---
JUST FOUND PT'S PRESCRIPTION SCRIPT IN CHART WHILE BREAKING DOWN CHART. PT HAS BEEN CONTACTED AND WILL BE COMING TO GET IT LATER.
== END 2020-05-20 09:40 | disposition home or self-care (01) | DRG 812 ==
LOC: ED 21:49 → MED/SURG 05-17 01:00
PROVIDERS: ADMIT Family Medicine; ATTEND Internal Medicine Endocrinology, Diabetes & Metabolism
DX: D57.818 Other sickle-cell disorders with crisis with other specified complication (principal); K21.9 Gastro-esophageal reflux disease without esophagitis; I10 Essential (primary) hypertension; I95.89 Other hypotension; E86.0 Dehydration
CPT/HCPCS: 36415; 80053; 81000; 85008; 85027; 85044; 87635; 96360; 96361; 96375; 96376; 99284; J0696; J1170; J2175; J2405; J2550; J3490; U0003

== ENCOUNTER 2020-06-29 11:46 | Outpatient (CLI) | payer OTHER ==
[~2020-06-29 11:46] MED LIST changes: +OXBRYTA PO
[2020-06-29 12:32] LABS: POTASSIUM 5.5 mmol/L (3.6-5.2)
== END 2020-06-29 20:34 | disposition home or self-care (01) ==
LOC: LABW 11:46
PROVIDERS: ATTEND Internal Medicine
DX: M25.561 Pain in right knee (principal); D57.1 Sickle-cell disease without crisis
CPT/HCPCS: 36415; 80053; 80061; 84550

== ENCOUNTER 2020-07-18 00:40 | Inpatient (IN) | payer OTHER ==
[2020-07-18] VITALS (13 sets, daily range): BP systolic 107–136; BP diastolic 50–81; TEMP 97.8–98.4; Ht 175.3 cm; Wt 64.5 kg
[~2020-07-18] VITALS: Ht 175.3 cm; Wt 64.5 kg
[2020-07-18 02:47] LABS: POTASSIUM 3.7 mmol/L (3.6-5.2)
[2020-07-18 03:17] LABS: PARTIAL THROMBOPLASTIN TIME 26.3 SECONDS (24.5-33.6)
[2020-07-18 03:47] LABS: PLATELET COUNT 154 K/uL (142-355)
--- NOTE | 2020-07-18 05:18 | NUR ---
07/18/20 0427: PT ARRIVED FROM ER BY WHEELCHAIR TO ROOM 1112. PT ALERT AND ORIENTED. PT HAS 1 VENOUS ULCER ON OUTER ASPECT OF RIGHT LEG AND 1 ULCER ON INNER ASPECT OF RIGHT LEG AROUND THE ANKLE AREA. PT HAS 1 ULCER TO OUTER ASPECT OF LEFT LEG THAT IS ALSO AROUND ANKLE AREA.PT IS AMBULATORY. HAD PAIN MED IN ER.
--- NOTE | 2020-07-18 11:55 | NUR ---
WARM COMPRESSES PLACED ON PATIENT'S MARGARET LOWER EXT AND PROPPED ON PINK WEDGE. PATIENT TOLERATING WELL AND DENIES ANY NEEDS AT THIS TIME.
--- NOTE | 2020-07-18 12:15 | NUR ---
PER DR. GRACE'S VERBAL INSTRUCTIONS, PATIENT'S VENOUS STASIS LEFT OPEN TO AIR.
--- NOTE | 2020-07-18 13:50 | NUR ---
PT HAVING ULTRASOUND DONE AT THIS TIME AND C/O OF SEVERE PAIN TO MARGARET LOWER EXT AND FEET. NOTIFIED DR. GRACE OF SAME, NEW ORDERS RECEIVED NOTED AND CARRIED OUT.
[2020-07-18] MEDS ORDERED: METOCLOPRAMIDE10 MG PO (14:10)
[2020-07-18] MEDS ORDERED: PANTOPRAZOLE 40MG TA PO (14:12)
--- NOTE | 2020-07-18 17:05 | NUR ---
WARM COMPRESSES PLACED ON PATIENT'S MARGARET LOWER EXT. PATIENT TOLERATING WELL.
--- NOTE | 2020-07-19 03:17 | NUR ---
PT REQUESTED PAIN MED FOR LEVEL 8 PAIN IN LEGS MARGARET. PT HAS ULCERS ON BOTH LOWER EXTREMITIES. DEMEROL 50MG GIVEN IV.
[2020-07-19 04:00] VITALS: BP 110/65; TEMP 98.1
[2020-07-19 05:37] LABS: PLATELET COUNT 135 K/uL (142-355)
[2020-07-19 05:51] LABS: POTASSIUM 4.1 mmol/L (3.6-5.2)
[2020-07-19 08:00] VITALS: BP 130/64; TEMP 98.1
--- NOTE | 2020-07-19 08:16 | NUR ---
DR. RUBALCAVA AT PT'S BEDSIDE. NEW ORDERS TO CHANGE IV FLUIDS.
[2020-07-19 12:00] VITALS: BP 132/66; TEMP 98.2
[2020-07-19 15:53] VITALS: BP 131/64; TEMP 98.4
[2020-07-19 20:02] VITALS: BP 117/62; TEMP 99.1
--- NOTE | 2020-07-19 20:50 | NUR ---
PATIENT C/O BILATERAL ANKLE PAIN AND LOW BACK PAIN WITH A PRS OF 8, PATIENT GIVEN DEMEROL 50MG IV PER MD ORDERS. CALL LIGHT WITHIN REACH, WILL CONTINUE TO MONITOR.
--- NOTE | 2020-07-19 21:30 | NUR ---
PATIENT RESTING QUIETLY WITH EYES CLOSED AND STATES PAIN IS BETTER AND NOW RATES IT AT 2 ON PRS. NO ACUTE DISTRESS NOTED AT THIS TIME. CALL LIGHT WITHIN REACH. WILL CONTINUE TO MONITOR.
[2020-07-20] VITALS: BP 129/64; TEMP 98.7
--- NOTE | 2020-07-20 00:16 | NUR ---
PATIENT GIVEN DEMEROL 50MG IV FOR PRS OF 8 PER MD ORDERS. CALL LIGHT WITHIN REACH. WILL CONTINUE TO MONITOR.
--- NOTE | 2020-07-20 00:46 | NUR ---
PATIENT RESTING QUIETLY AND REPORTS PRS OF 2 AT THIS TIME. NO ACUTE DISTRESS NOTED AT THIS TIME. CALL LIGHT WITHIN REACH. WILL CONTINUE TO MONITOR.
[2020-07-20 04:00] VITALS: BP 129/56; TEMP 98
[2020-07-20 05:19] LABS: PLATELET COUNT 144 K/uL (142-355)
[2020-07-20 05:21] LABS: POTASSIUM 3.8 mmol/L (3.6-5.2)
[2020-07-20 08:00] VITALS: BP 124/63; TEMP 98.4
--- NOTE | 2020-07-20 10:00 | NUR ---
WOUND CARE COMPLETED AT THIS TIME. NO DRAINAGE NOTED TO BILAT ANKLE ULCERS. PT C/O BURNING PAIN TO RIGHT INNER AND OUTTER ANKLE ULCERS AFTER DRESSING CHANGE. PT STATES "IT'S OK IT WILL STOP IN A MINUTE"
--- NOTE | 2020-07-20 10:45 | NUR ---
PT CALLED TO NURSES STATION REQUESTED HIS NURSE. PT NOTED TO BE SITTING UP ON SIDE OF BED HOLDING IS ANKLE AND GRIMACING. PT STATES "I DON'T KNOW IF I CAN GO HOME WITH IT HURTING LIKE THIS" DELFIN DE LA TORRE RN NOTIFIED. DR. RUBALCAVA NOTIFIED. DELFIN DE LA TORRE RN AT PT'S BEDSIDE. NORCO GIVEN PO AT THIS TIME PER MD ORDERS FOR PAIN. PT REQUESTS TO STAY AFTER TALKING WITH PARVIN LENZ.
--- NOTE | 2020-07-20 10:55 | NUR ---
PT REPORTS PAIN 10/10. PT CON'T TO GRAB AND HOLD HIS ANKEL. PT STATES "I TRIED TO GET UP AND COULDN'T STAND TO WALK ON IT"
[2020-07-20 12:00] VITALS: BP 129/70; TEMP 98.5
[2020-07-20 16:00] VITALS: BP 132/63; TEMP 98.2
--- NOTE | 2020-07-20 19:45 | NUR ---
ENTERED PATIENT'S ROOM AT THIS TIME. PATIENT LYING IN BED WATCHING TV. 22G TO RIGHT AC PATENT AND INTACT. D5 1/4 NS INFUSING @ 125ML/HR. C/O PAIN TO BILATERAL ANKLES. HAS TWO ULCERS ON RIGHT ANKLE- MEDIAL AND LATERAL SIDES - AND TWO ULCERS ON THE LEFT FOOT/ANKLE. ULCERS ARE COVERED WITH VASELINE GAUZE- CHANGED TODAY. STATES DEMEROL 50MG GIVEN @ 1830 DID HELP SOME. NO OTHER CONCERNS VOICED AT THIS TIME. BED LOCKED AND IN LOWEST POSITION. CALL LIGHT WITHIN REACH.
[2020-07-20 20:00] VITALS: BP 132/43; TEMP 98.4
[2020-07-21] VITALS (7 sets, daily range): BP systolic 115–174; BP diastolic 46–87; TEMP 98.1–98.4
--- NOTE | 2020-07-21 01:10 | NUR ---
VANCOMYCIN HUNG AT THIS TIME. PER PHARM-D (MARION) VANC IS COMPATIABLE WITH D5 1/4 NS. TROUGH DUE BEFORE NEXT DOSE @ 1300. PATIENT REQUESTING SOMETHING FOR PAIN. DEMEROL 50MG GIVEN VIA SLOW IVP. NAD NOTED. CALL LIGHT WITHIN REACH.
[2020-07-21 05:33] LABS: PLATELET COUNT 142 K/uL (142-355)
--- NOTE | 2020-07-21 05:35 | NUR ---
IN TO CHECK ON PATIENT. PATIENT RESTING QUIETLY WITH EYES CLOSED. RESPIRATIONS EVEN AND UNLABORED. NAD NOTED. I DID NOT DISTURB PATIENT. CALL LIGHT WITHIN REACH.
[2020-07-21 05:43] LABS: POTASSIUM 3.5 mmol/L (3.6-5.2)
--- NOTE | 2020-07-21 06:15 | NUR ---
PATIENT CALLED REQUESTING SOMETHING FOR PAIN. DEMEROL 50MG GIVEN VIA SLOW IVP. NAD NOTED. PATIENT RESTING QUIETLY IN BED. CALL LIGHT WITHIN REACH.
--- NOTE | 2020-07-21 15:25 | NUR ---
NOTIFIED WOUND CARE NURSE, RALPH OF [facility], AND REQUESTED SHE EVALUATE PATIENT'S WOUNDS AND ADVISE OF WOUND CARE. NURSE ROSAS CONSENTED TO REQUEST
--- NOTE | 2020-07-21 16:10 | NUR ---
RALPH, WOUND CARE NURSE, CALLED AND SUGGESTED TO COVER AREAS WITH MEDIHONEY OR BETADINE AND PLACE NIKITA HOSE OR GABBY WRAPS TO BLE FOR COMPRESSION.
--- NOTE | 2020-07-21 18:35 | NUR ---
REMOVED PATIENT'S DRESSINGS TO BLE WITH USE OF NS AND VASELINE TO BANDAGE TO REMOVE AREAS OF BANDAGE DRIED TO ULCERS. PROVIDED PATIENT WITH TOWELS AND BATHCLOTHS FOR SHOWER AND BED LINENS CHANGED. NO S/SX OF DISTRESS NOTED WITH PATIENT AT THIS TIME. MOM AT BEDSIDE AND CALL LIGHT WITHIN REACH. PATIENT INSTRUCTED TO CALL FOR ANY ASSISTANCE OR NEEDS.
--- NOTE | 2020-07-21 21:01 | NUR ---
PATIENTS DRESSINGS WERE REAPPLIED BY THE PATIENT AFTER HE TOOK A SHOWER. PATIENT REQUESTED PAIN MEDICATION. I ASKED HIM IF HE WNATED TO TRY THE HYDROCODONE SO HE COULD WEAN OFF THE DEMERAL. PATIENT REPLIED THAT HIS PAIN IS A 8 OUT OF 10. PATIENT WAS GIVEN PRN IV PAIN MEDICATION
--- NOTE | 2020-07-21 21:15 | NUR ---
PATIENT REPORTS PAIN IN HIS FEET "HAS LESSENED" PATIENT IS NOW RESTING AND EATING SUPPER HIS DAUGHTER BROUGHT
--- NOTE | 2020-07-22 00:05 | NUR ---
PATIENT STATES, " I HAVE TO KEEP MOVING MY FEET BC THEY HURT SO MUCH." PATIENT STATES HIS PAIN IS A, "8 OUT 10. BECASUE I THINK THE OTHER MEDICATION IS WORE OFF." I GAVE HIM THE PRN IV PAIN MEDICATION. I ALSO EDUCATED THE PATIENT ON TRYING TO WEAN OFF THE IV PAIN MEDICATION. PATIENT VOICED UNDERSTANDING
--- NOTE | 2020-07-22 03:40 | NUR ---
PATIENT IS RESTING WELL. STATED, "I DO HURT BUT I CAN WAIT A LITTLE LONGER FOR PAIN MEDICATION."
[2020-07-22 04:00] VITALS: BP 139/71; TEMP 98.5
[2020-07-22 04:06] LABS: PLATELET COUNT 163 K/uL (142-355)
[2020-07-22 04:12] LABS: POTASSIUM 3.5 mmol/L (3.6-5.2)
--- NOTE | 2020-07-22 05:07 | NUR ---
PATIENT REQUESTED "SOMETHING FOR PAIN." I ASKED THE PATIENT IF HE COULD TAKE THE PO PAIN MEDICATION BECAUSE I TOLD HIM HE WAS SUSPOSED TO GO HOME TODAY. THE PATIENT SAID," I KNOW I WANT TO GO HOME TODAY. THIS WILL PROBBLY BE MY LAST DOSE OF THE IV STUFF, THEN IM GOING TO TRY NOT TO TAKE ANY MORE." PATIENT WAS EDUCATED ON HIS PO MEDICATIONS OPTIONS
--- NOTE | 2020-07-22 05:58 | NUR ---
PATIENT IS RESTING QUIETLY. PATIENT DENIES PAIN, "IT IS NOT VERY MUCH NOW"
[2020-07-22 08:00] VITALS: BP 144/55; TEMP 98.2
[2020-07-22 12:06] VITALS: BP 125/81; TEMP 97.6
--- NOTE | 2020-07-22 15:05 | NUR ---
PT HAS STATSIS ULCERS TO ANKLES BILATERAL R INNER ANKLE 1.9CMX1.6CMX UTD WITH SLOUGH COVERING 100% OF WOUND BED. RT LATERAL ANKLE 1.6CMX 2.6CMX UNABLE TO DETERMINE WITH SLOUGH COVERING 100% WOUND BED. LEFT LATERAL ANKLE 1.6CM X 0.9CM X UNABLE TO DETERMINE WITH SLOUGH COVING 100% OF WOUND BED.
--- NOTE | 2020-07-22 15:47 | NUR ---
1300 22G TO RFA INFILTRATED PT C/O PAIN WHEN STAFF PUSHED PAIN MED. IV D/C AND 22G STARTED TO LEFT UPPER ARM. FLUSHED WITH NO COMPLICATIONS. IVF INFUSING WITH NO COMPLICATIONS.
[2020-07-22 16:08] VITALS: BP 120/81; TEMP 97.9
[2020-07-22 20:03] VITALS: BP 129/72; TEMP 98.1
[2020-07-23] VITALS: BP 141/68; TEMP 98.4
--- NOTE | 2020-07-23 01:13 | NUR ---
PATIENT WAS UP IN CHAIR AND ASKING FOR PAIN MEDICATION. PATIENT WAS HELPPED TO BED AND FOOT ELIVATED. PATIENT ALSO GIVEN PRN PAIN MEDICATION. PATIENT WAS CHECKED 45 MINS LATER AND PATIENT REPORTS RELIEF
[2020-07-23 03:42] VITALS: BP 145/57; TEMP 98.4
[2020-07-23 05:44] LABS: PLATELET COUNT 167 K/uL (142-355)
[2020-07-23 05:52] LABS: POTASSIUM 3.4 mmol/L (3.6-5.2)
[2020-07-23 07:52] VITALS: BP 119/54; TEMP 98.3
== END 2020-07-23 09:05 | disposition home or self-care (01) | DRG 812 ==
LOC: ED 00:40 → MED/SURG 03:00
PROVIDERS: Hospitalist; Internal Medicine Endocrinology, Diabetes & Metabolism; ADMIT Internal Medicine; ATTEND Internal Medicine
DX: D57.818 Other sickle-cell disorders with crisis with other specified complication (principal); K21.9 Gastro-esophageal reflux disease without esophagitis; I10 Essential (primary) hypertension; Z86.711 Personal history of pulmonary embolism; L98.8 Other specified disorders of the skin and subcutaneous tissue
CPT/HCPCS: 36415; 36416; 80048; 80053; 80202; 83605; 85008; 85027; 85044; 85610; 85730; 87040; 87635; 94760; 96360; 96361; 96365; 96372; 96375; 96376; 99284; J1650; J2175; J2405; J3370; U0003

== ENCOUNTER 2020-09-18 10:06 | Outpatient (CLI) | payer OTHER ==
[2020-09-18 11:06] LABS: PLATELET COUNT 180 K/uL (142-355)
[2020-09-18 11:30] LABS: POTASSIUM 4.2 mmol/L (3.6-5.2)
== END 2020-09-18 19:30 | disposition home or self-care (01) ==
LOC: LABW 10:06
PROVIDERS: ATTEND Internal Medicine Hematology & Oncology
DX: D57.1 Sickle-cell disease without crisis (principal)
CPT/HCPCS: 36415; 80053; 82306; 82728; 85027; 85044

== ENCOUNTER 2020-10-27 12:03 | Emergency (ER) | payer OTHER ==
[~2020-10-27] VITALS: Ht 175.3 cm; Wt 64.4 kg
[2020-10-27 12:20] VITALS: TEMP 97
[2020-10-27 15:11] LABS: PLATELET COUNT 105 K/uL (142-355)
[2020-10-27 15:21] LABS: POTASSIUM 5.3 mmol/L (3.6-5.2)
[2020-10-27 19:00] VITALS: BP 131/65
== END 2020-10-27 19:05 | disposition home or self-care (01) ==
LOC: ED 12:03
PROVIDERS: Hospitalist
DX: D57.1 Sickle-cell disease without crisis (principal); E86.0 Dehydration; Z20.822 Contact with and (suspected) exposure to COVID-19
CPT/HCPCS: 80053; 80320; 82150; 83690; 85007; 85027; 85044; 87635; 96360; 96361; 96365; 96375; 96376; 99284; J2175; J2405; J2543; U0003

== ENCOUNTER 2020-10-29 00:43 | Emergency (ER) | payer OTHER ==
[~2020-10-29] VITALS: Ht 175.3 cm; Wt 63.0 kg
[2020-10-29 03:15] LABS: POTASSIUM 4.2 mmol/L (3.6-5.2); SODIUM 142 mmol/L (136-145)
[2020-10-29 03:22] LABS: PLATELET COUNT 132 K/uL (142-355)
[2020-10-29 10:12] VITALS: BP 147/84; TEMP 98.1
== END 2020-10-29 10:12 | disposition home or self-care (01) ==
LOC: ED 00:43
PROVIDERS: Family Medicine
DX: D57.00 Hb-SS disease with crisis, unspecified (principal); M54.5 Low back pain
CPT/HCPCS: 36415; 80053; 80307; 80320; 80329; 81000; 82550; 84484; 85027; 93005; 96374; 96375; 96376; 99284; J1200; J1885; J2175

== ENCOUNTER 2020-12-27 13:24 | Outpatient (CLI) | payer OTHER ==
[2020-12-27 13:40] LABS: PLATELET COUNT 167 K/uL (142-355)
[2020-12-27 13:44] LABS: POTASSIUM 4.6 mmol/L (3.6-5.2)
== END 2020-12-27 19:19 | disposition home or self-care (01) ==
LOC: LAB 13:24
PROVIDERS: ATTEND Internal Medicine Hematology & Oncology
DX: D57.1 Sickle-cell disease without crisis (principal)
CPT/HCPCS: 36415; 80053; 82306; 85027; 85044

== ENCOUNTER 2021-01-01 16:22 | Inpatient (IN) | payer OTHER ==
[~2021-01-01] VITALS: Ht 175.3 cm; Wt 65.1 kg
[2021-01-01 16:23] VITALS: BP 147/55; TEMP 98.7
[2021-01-01 17:00] VITALS: BP 139/81
[2021-01-01 17:10] LABS: POTASSIUM 4.4 mmol/L (3.6-5.2)
[2021-01-01 17:12] LABS: PLATELET COUNT 186 K/uL (142-355)
[2021-01-01 17:30] VITALS: BP 130/72
[2021-01-01 18:00] VITALS: BP 138/84
[2021-01-01 19:00] VITALS: BP 124/68
[2021-01-01 21:30] VITALS: BP 128/78; TEMP 98.8
[2021-01-02 04:00] VITALS: BP 102/62; TEMP 97.7
[2021-01-02 05:19] VITALS: BP 132/57; TEMP 98.7; Ht 175.3 cm; Wt 65.1 kg
[2021-01-02 05:53] LABS: POTASSIUM 4.1 mmol/L (3.6-5.2)
[2021-01-02 06:17] LABS: PLATELET COUNT 150 K/uL (142-355)
[2021-01-02 08:00] VITALS: BP 105/51; TEMP 97.8
[2021-01-02 12:00] VITALS: BP 100/49; TEMP 97.6
[2021-01-02 16:00] VITALS: BP 109/51; TEMP 97.7
[2021-01-02 20:23] VITALS: BP 116/62; TEMP 98.5
[2021-01-03 00:12] VITALS: BP 126/64; TEMP 98.3
[2021-01-03 03:47] VITALS: BP 108/60; TEMP 98.4
[2021-01-03 05:37] LABS: PLATELET COUNT 160 K/uL (142-355)
[2021-01-03 05:42] LABS: POTASSIUM 4.1 mmol/L (3.6-5.2)
[2021-01-03 08:23] VITALS: BP 120/50; TEMP 98.4
[2021-01-03 12:23] VITALS: BP 131/64; TEMP 97.8
[2021-01-03 16:23] VITALS: BP 123/69; TEMP 98.4
[2021-01-03 20:00] VITALS: BP 129/69; TEMP 98.4
[2021-01-04 00:30] VITALS: BP 117/54; TEMP 98.1
[2021-01-04 04:23] VITALS: BP 121/58; TEMP 99
[2021-01-04 05:05] LABS: PLATELET COUNT 158 K/uL (142-355)
[2021-01-04 05:06] LABS: POTASSIUM 4.2 mmol/L (3.6-5.2)
[2021-01-04 08:00] VITALS: BP 140/74; TEMP 98.1
[2021-01-04 12:00] VITALS: BP 107/68; TEMP 97.8
[2021-01-04 16:00] VITALS: BP 126/67; TEMP 98.3
[2021-01-04 20:00] VITALS: BP 150/72; TEMP 98.1
[2021-01-05 00:43] VITALS: BP 120/62; TEMP 98.7
[2021-01-05 04:33] VITALS: BP 120/60; TEMP 97.8
[2021-01-05 05:01] LABS: PLATELET COUNT 152 K/uL (142-355)
[2021-01-05 05:07] LABS: POTASSIUM 4.3 mmol/L (3.6-5.2)
[2021-01-05 08:23] VITALS: BP 117/55; TEMP 97.8
== END 2021-01-05 11:50 | disposition home or self-care (01) | DRG 812 ==
LOC: ED 16:22 → MED/SURG 21:00
PROVIDERS: ADMIT Emergency Medicine Emergency Medical Services; ATTEND Internal Medicine
DX: D57.818 Other sickle-cell disorders with crisis with other specified complication (principal); G89.4 Chronic pain syndrome; D72.828 Other elevated white blood cell count; R94.8 Abnormal results of function studies of other organs and systems; I10 Essential (primary) hypertension; Z86.711 Personal history of pulmonary embolism
CPT/HCPCS: 36415; 80053; 81000; 83605; 85007; 85008; 85027; 85044; 87040; 87635; 94760; 96360; 96366; 96367; 96372; 96375; 96376; 99284; J0456; J0696; J1200; J1650; J2175; J2550; J3010; U0003

== ENCOUNTER 2021-03-28 10:23 | Inpatient (IN) | payer OTHER ==
[~2021-03-28] VITALS: Ht 175.3 cm; Wt 63.2 kg
[2021-03-28 10:31] VITALS: BP 111/90; TEMP 99.9
[2021-03-28 11:06] LABS: PLATELET COUNT 238 K/uL (142-355)
[2021-03-28 11:13] LABS: POTASSIUM 4.4 mmol/L (3.6-5.2)
[2021-03-28 12:00] VITALS: BP 106/50
[2021-03-28 12:21] VITALS: BP 100/49
[2021-03-28 14:50] VITALS: BP 138/52; TEMP 99.3; Ht 175.3 cm; Wt 63.2 kg
[2021-03-28 16:00] VITALS: BP 102/48; TEMP 99.7
[2021-03-28 20:00] VITALS: BP 116/72; TEMP 99.7
[2021-03-29] VITALS: BP 99/50; TEMP 98.6
[2021-03-29 04:00] VITALS: BP 107/48; TEMP 98.8
[2021-03-29 04:46] LABS: PLATELET COUNT 213 K/uL (142-355)
[2021-03-29 04:52] LABS: POTASSIUM 4.4 mmol/L (3.6-5.2)
[2021-03-29 08:00] VITALS: BP 99/48; TEMP 98.5
[2021-03-29 12:00] VITALS: BP 116/59; TEMP 98.4
[2021-03-29 16:00] VITALS: BP 116/56; TEMP 98
[2021-03-29 20:00] VITALS: BP 116/61; TEMP 98.3
[2021-03-30] VITALS (7 sets, daily range): BP systolic 127–165; BP diastolic 53–88; TEMP 97.9–98.8
[2021-03-30 05:01] LABS: PLATELET COUNT 210 K/uL (142-355)
[2021-03-31 06:34] LABS: PLATELET COUNT 204 K/uL (142-355)
[2021-03-31 06:41] LABS: POTASSIUM 4.1 mmol/L (3.6-5.2)
[2021-03-31 08:00] VITALS: BP 124/41; TEMP 98
[2021-03-31 12:00] VITALS: BP 145/62; TEMP 97.6
[2021-03-31 16:00] VITALS: BP 144/73; TEMP 97.9
[2021-03-31 20:03] VITALS: BP 143/73; TEMP 98
[2021-04-01] VITALS (14 sets, daily range): BP systolic 106–168; BP diastolic 50–77; TEMP 97.9–98.7
[2021-04-02 04:13] VITALS: BP 132/62; TEMP 98.03
[2021-04-02 05:26] LABS: PLATELET COUNT 200 K/uL (142-355)
[2021-04-02 05:40] LABS: POTASSIUM 3.8 mmol/L (3.6-5.2)
[2021-04-02 08:00] VITALS: BP 143/67; TEMP 98.2
[2021-04-02 12:00] VITALS: BP 143/63; TEMP 97.6
[2021-04-02 16:00] VITALS: BP 111/55; TEMP 98.4
[2021-04-02 20:00] VITALS: BP 115/73; TEMP 98.6
[2021-04-03] VITALS: BP 148/69; TEMP 99.6
[2021-04-03 04:00] VITALS: BP 154/71; TEMP 98.3
[2021-04-03 08:04] VITALS: BP 138/60; TEMP 98.5
[2021-04-03 12:00] VITALS: BP 130/61; TEMP 98.3
[2021-04-03 16:00] VITALS: BP 117/53; TEMP 98.3
[2021-04-03 20:00] VITALS: BP 127/61; TEMP 98.1
[2021-04-04] VITALS: BP 112/64; TEMP 98.2
[2021-04-04 04:00] VITALS: BP 146/66; TEMP 98.5
[2021-04-04 08:00] VITALS: BP 143/69; TEMP 98.3
[2021-04-04] MEDS ORDERED: METOCLOPRAM5 MG PO (14:40)
== END 2021-04-04 17:00 | disposition home or self-care (01) | DRG 177 ==
LOC: ED 10:23 → MED/SURG 11:35
PROVIDERS: Hospitalist; ADMIT Internal Medicine Endocrinology, Diabetes & Metabolism; ATTEND Internal Medicine Endocrinology, Diabetes & Metabolism
PROC: 05HM33Z Insertion of Infusion Device into Right Internal Jugular Vein, Percutaneous Approach (ICD-10-PCS; principal; 2021-03-31)
PROC: 30233N1 Transfusion of Nonautologous Red Blood Cells into Peripheral Vein, Percutaneous Approach (ICD-10-PCS; 2021-04-01)
DX: U07.1 COVID-19 (principal); J96.01 Acute respiratory failure with hypoxia; D57.819 Other sickle-cell disorders with crisis, unspecified; K21.9 Gastro-esophageal reflux disease without esophagitis; Z86.711 Personal history of pulmonary embolism; I10 Essential (primary) hypertension
CPT/HCPCS: 36415; 36416; 36600; 80048; 80053; 82550; 82805; 84484; 85007; 85008; 85027; 85044; 86850; 86900; 86901; 86922; 87502; 87651; 93005; 94760; 96360; 96375; 99284; C1768; J0248; J0456; J0696; J1100; J1170; J1650; J1940; J2175; J2405; P9016

== ENCOUNTER 2021-04-18 11:45 | Outpatient (CLI) | payer OTHER ==
[~2021-04-18 11:45] MED LIST changes: +METOCLOPRAM5 MG PO
[2021-04-18 12:00] LABS: PLATELET COUNT 254 K/uL (142-355)
[2021-04-18 12:22] LABS: POTASSIUM 4.2 mmol/L (3.6-5.2)
== END 2021-04-18 19:08 | disposition home or self-care (01) ==
LOC: LABW 11:45
PROVIDERS: ATTEND Internal Medicine Hematology & Oncology
DX: D57.1 Sickle-cell disease without crisis (principal)
CPT/HCPCS: 36415; 80053; 82306; 82728; 85027; 85044

== ENCOUNTER 2021-06-29 11:26 | Inpatient (IN) | payer OTHER ==
[2021-06-29] VITALS (9 sets, daily range): BP systolic 104–131; BP diastolic 49–75; TEMP 98.5–102.8; Ht 175.3 cm; Wt 64.6 kg
[~2021-06-29] VITALS: Ht 175.3 cm; Wt 64.6 kg
[2021-06-29 12:18] LABS: PLATELET COUNT 251 K/uL (142-355)
[2021-06-29 12:23] LABS: POTASSIUM 5.4 mmol/L (3.6-5.2)
[2021-06-29 12:33] LABS: PARTIAL THROMBOPLASTIN TIME 22.3 SECONDS (24.5-33.6)
[2021-06-29] MEDS ORDERED: METOCLOPRAM5 MG PO (16:00)
[2021-06-29] MEDS ORDERED: LISI5TAB10 PO (16:01)
[2021-06-29] MEDS ORDERED: TRAZODONE HYDRO50 MG PO (16:02)
[2021-06-29] MEDS ORDERED: PANTOPRAZOLE 40MG TA PO (16:03)
[2021-06-29] MEDS ORDERED: MORPHINE SUL15 M1 PO (16:12)
[2021-06-30] VITALS: BP 97/46; TEMP 99.6
[2021-06-30 04:00] VITALS: BP 109/60; TEMP 98.2
[2021-06-30 05:13] LABS: PLATELET COUNT 249 K/uL (142-355)
[2021-06-30 05:46] LABS: POTASSIUM 4.4 mmol/L (3.6-5.2)
[2021-06-30 08:07] VITALS: BP 81/40; TEMP 98.3
[2021-06-30 12:00] VITALS: BP 102/51; TEMP 98.6
[2021-06-30 15:53] VITALS: BP 105/55; TEMP 98.6
[2021-06-30 20:00] VITALS: BP 96/52; TEMP 98.5
[2021-07-01] VITALS: BP 88/42; TEMP 98.3
[2021-07-01 04:00] VITALS: BP 93/46; TEMP 98.1
[2021-07-01 08:00] VITALS: BP 104/57; TEMP 98.3
[2021-07-01 08:38] LABS: PLATELET COUNT 239 K/uL (142-355)
[2021-07-01 08:51] LABS: POTASSIUM 4.6 mmol/L (3.6-5.2)
[2021-07-01 12:00] VITALS: BP 90/53; TEMP 97.7
[2021-07-01 16:00] VITALS: BP 97/44; TEMP 97.9
[2021-07-01 20:00] VITALS: BP 93/49; TEMP 98.4
[2021-07-02] VITALS: BP 105/37; TEMP 98.5
[2021-07-02 04:00] VITALS: BP 115/53; TEMP 98.8
[2021-07-02 05:23] LABS: PLATELET COUNT 239 K/uL (142-355)
[2021-07-02 05:34] LABS: POTASSIUM 3.8 mmol/L (3.6-5.2)
[2021-07-02 08:00] VITALS: BP 115/44; TEMP 98.4
[2021-07-02 12:00] VITALS: BP 111/54; TEMP 98.1
[2021-07-02 16:00] VITALS: BP 98/45; TEMP 98.7
[2021-07-02 19:43] VITALS: BP 108/44; TEMP 99
[2021-07-03 00:06] VITALS: BP 105/37; TEMP 98.7
[2021-07-03 04:09] VITALS: BP 109/59; TEMP 98.6
[2021-07-03 05:47] LABS: PLATELET COUNT 242 K/uL (142-355)
[2021-07-03 05:50] LABS: POTASSIUM 3.7 mmol/L (3.6-5.2)
[2021-07-03 08:00] VITALS: BP 107/42; TEMP 98.5
[2021-07-03 12:00] VITALS: BP 102/47; TEMP 98.1
== END 2021-07-03 14:00 | disposition home or self-care (01) | DRG 812 ==
LOC: ED 11:26 → MED/SURG 14:15
PROVIDERS: Internal Medicine; ADMIT Hospitalist; ATTEND Family Medicine
DX: D57.818 Other sickle-cell disorders with crisis with other specified complication (principal); K21.9 Gastro-esophageal reflux disease without esophagitis; I10 Essential (primary) hypertension; Z86.711 Personal history of pulmonary embolism
CPT/HCPCS: 36415; 80048; 80053; 83605; 83690; 83735; 84100; 85027; 85044; 85610; 85730; 87040; 87070; 87205; 87635; 94760; 96360; 96361; 96365; 96375; 96376; 99284; J0456; J0696; J1650; J1885; J2175; J2405; J2543; J2550; J3490; Q9963; U0003

== ENCOUNTER 2021-07-18 11:00 | Outpatient (CLI) | payer OTHER ==
[~2021-07-18 11:00] MED LIST changes: +MORPHINE SUL15 M1 PO; +TRAZODONE HYDRO50 MG PO
[2021-07-18 11:35] LABS: PLATELET COUNT 221 K/uL (142-355)
[2021-07-18 11:39] LABS: POTASSIUM 4.2 mmol/L (3.6-5.2)
== END 2021-07-18 19:17 | disposition home or self-care (01) ==
LOC: LABW 11:00
PROVIDERS: ATTEND Internal Medicine Hematology & Oncology
DX: D57.1 Sickle-cell disease without crisis (principal)
CPT/HCPCS: 36415; 80053; 82043; 82570; 85027; 85379

== ENCOUNTER 2021-10-06 00:11 | Emergency (ER) | payer OTHER ==
[~2021-10-06] VITALS: Ht 175.3 cm; Wt 59.0 kg
[~2021-10-06 00:11] MED LIST changes: -MORPHINE SUL15 M1 PO; +MS CONTIN15 MG PO
[2021-10-06 01:26] LABS: PLATELET COUNT 247 K/uL (142-355)
[2021-10-06 01:30] LABS: POTASSIUM 3.5 mmol/L (3.6-5.2)
[2021-10-06 01:46] LABS: PARTIAL THROMBOPLASTIN TIME 26.8 SECONDS (24.5-33.6)
[2021-10-06 05:00] VITALS: BP 133/61; TEMP 98.1
== END 2021-10-06 05:00 | disposition home or self-care (01) ==
LOC: ED 00:11
PROVIDERS: Hospitalist
DX: D57.00 Hb-SS disease with crisis, unspecified (principal); G89.29 Other chronic pain
CPT/HCPCS: 36415; 80053; 83605; 85008; 85027; 85044; 85610; 85730; 87040; 96360; 96361; 96365; 96375; 96376; 99284; J1200; J1885; J2175; J2405; J2543

== ENCOUNTER 2021-10-06 13:46 | Emergency (ER) | payer OTHER ==
[~2021-10-06] VITALS: Ht 175.3 cm; Wt 59.0 kg
[2021-10-06 14:00] VITALS: TEMP 98.1
[2021-10-06 15:47] VITALS: BP 111/65
== END 2021-10-06 15:48 | disposition home or self-care (01) ==
LOC: ED 13:46
DX: D57.00 Hb-SS disease with crisis, unspecified (principal); D63.8 Anemia in other chronic diseases classified elsewhere
CPT/HCPCS: 96372; 99283; J2175; J2405

== ENCOUNTER 2021-10-08 11:40 | Outpatient (CLI) | payer OTHER ==
[2021-10-08 12:04] LABS: PLATELET COUNT 239 K/uL (142-355)
[2021-10-08 12:07] LABS: POTASSIUM 4.6 mmol/L (3.6-5.2)
[2021-10-09] MEDS ORDERED: OXYCODONE HCL15 MG PO (08:42)
== END 2021-10-08 18:59 | disposition home or self-care (01) ==
LOC: LABW 11:40
PROVIDERS: ATTEND Internal Medicine
DX: D57.1 Sickle-cell disease without crisis (principal)
CPT/HCPCS: 36415; 80053; 80061; 81002; 81015; 85027

== ENCOUNTER 2021-10-08 20:43 | Inpatient (IN) | payer OTHER ==
[~2021-10-08] VITALS: Ht 175.3 cm; Wt 63.2 kg
[2021-10-08 20:43] VITALS: BP 128/62; TEMP 98.6
[2021-10-08 23:03] LABS: PLATELET COUNT 242 K/uL (142-355)
[2021-10-08 23:08] LABS: POTASSIUM 3.8 mmol/L (3.6-5.2)
[2021-10-09] VITALS (14 sets, daily range): BP systolic 101–137; BP diastolic 44–77; TEMP 97.7–98.4; Ht 175.3 cm; Wt 63.2 kg
[2021-10-09] MEDS ORDERED: OXYCODONE HCL15 MG PO (08:42)
[2021-10-09 09:10] LABS: PLATELET COUNT 267 K/uL (142-355)
[2021-10-10] VITALS: BP 113/62; TEMP 98.6
[2021-10-10 04:00] VITALS: BP 101/58; TEMP 98.4
[2021-10-10 04:55] LABS: PLATELET COUNT 239 K/uL (142-355)
[2021-10-10 05:27] LABS: POTASSIUM 4.5 mmol/L (3.6-5.2)
[2021-10-10 12:00] VITALS: BP 91/52; TEMP 98.3
[2021-10-10 16:00] VITALS: BP 119/42; TEMP 98.3
[2021-10-10 20:00] VITALS: BP 112/56; TEMP 98.1
[2021-10-11] VITALS: BP 118/71; TEMP 97.4
[2021-10-11 04:00] VITALS: BP 146/93; TEMP 98.7
[2021-10-11 05:43] LABS: PLATELET COUNT 217 K/uL (142-355)
[2021-10-11 08:00] VITALS: BP 135/70; TEMP 98.1
[2021-10-11 12:00] VITALS: BP 126/46; TEMP 98.5
[2021-10-11 16:00] VITALS: BP 115/48; TEMP 98.6
[2021-10-11 20:00] VITALS: BP 116/56; TEMP 98.4
[2021-10-12] VITALS: BP 112/60; TEMP 98.4
[2021-10-12 04:00] VITALS: BP 115/48; TEMP 97.8
[2021-10-12 08:00] VITALS: BP 138/78; TEMP 98
[2021-10-12 12:00] VITALS: BP 138/65; TEMP 97.8
[2021-10-12 16:00] VITALS: BP 137/50; TEMP 97.9
[2021-10-12 20:00] VITALS: BP 139/58; TEMP 97.9
[2021-10-13] VITALS: BP 150/68; TEMP 98.2
[2021-10-13 04:00] VITALS: BP 136/75; TEMP 98.3
[2021-10-13 08:00] VITALS: BP 120/61; TEMP 98.1
[2021-10-13 12:00] VITALS: BP 129/68; TEMP 98
== END 2021-10-13 13:34 | disposition home or self-care (01) | DRG 812 ==
LOC: ED 20:43 → MED/SURG 10-09 01:30
PROVIDERS: ADMIT Emergency Medicine Emergency Medical Services; ATTEND Internal Medicine
DX: D57.818 Other sickle-cell disorders with crisis with other specified complication (principal); R10.13 Epigastric pain; I10 Essential (primary) hypertension; K21.9 Gastro-esophageal reflux disease without esophagitis
CPT/HCPCS: 36415; 36430; 80053; 81002; 81015; 82150; 83690; 83735; 84484; 85008; 85014; 85018; 85027; 85044; 86850; 86900; 86901; 86922; 87502; 87635; 93005; 94760; 96360; 96361; 96365; 96366; 96372; 96375; 99284; J1170; J1650; J1956; J2001; J2175; J2405; J3490; P9016; U0003

== ENCOUNTER 2021-10-16 00:08 | Emergency (ER) | payer OTHER ==
[~2021-10-16] VITALS: Ht 175.3 cm; Wt 63.0 kg
[~2021-10-16 00:08] MED LIST changes: +OXYCODONE HCL15 MG PO
[2021-10-16 00:15] VITALS: TEMP 98.9
[2021-10-16 01:48] LABS: PLATELET COUNT 249 K/uL (142-355)
[2021-10-16 01:54] LABS: POTASSIUM 3.4 mmol/L (3.6-5.2)
[2021-10-16 11:37] VITALS: BP 126/53
--- NOTE | 2021-10-18 10:18 | NUR ---
Batch Weigher spoke with patient and he is doing fine. He said that everyone was good to him and that he has no needs at this time.
== END 2021-10-16 15:50 | disposition short-term general hospital (02) ==
LOC: ED 00:08
PROVIDERS: Emergency Medicine Emergency Medical Services
PROC: 0D9670Z Drainage of Stomach with Drainage Device, Via Natural or Artificial Opening (ICD-10-PCS; principal; 2021-10-16)
DX: K56.600 Partial intestinal obstruction, unspecified as to cause (principal); Z11.52 Encounter for screening for COVID-19
CPT/HCPCS: 43754; 80053; 82150; 83690; 85027; 85044; 87635; 96360; 96361; 96374; 96375; 96376; 99284; J1170; J2001; J2175; J2405; J3490; U0003

== ENCOUNTER 2021-11-11 20:09 | Inpatient (IN) | payer OTHER ==
[~2021-11-11] VITALS: Ht 175.3 cm; Wt 60.1 kg
[2021-11-11 20:09] VITALS: BP 125/78; TEMP 98.6
[2021-11-11 21:29] LABS: PLATELET COUNT 247 K/uL (142-355)
[2021-11-11 21:45] LABS: POTASSIUM 3.4 mmol/L (3.6-5.2)
--- NOTE | 2021-11-11 22:41 | NUR ---
PT ADMITTED TO ROOM 1112 TAKEN FROM ER TO ROOM VIA WHEELCHAIR. PT AWAKE, ALERT, AND ORIENTED X4 WITH NO ACUTE DISTRESS NOTED, DENIES ANY NEEDS AT THIS TIME, RESP RATE NONLABORED, ON ROOM AIR, 20G IV INTACT TO L AC, SKIN WARM AND DRY, RADIAL PULSES INTACT, LUNGS CLEAR, BS+ LAST BM TODAY 11/11/21. PLAN OF CARE AND ORDERS EXPLAINED TO PT AND PT EDUCATED ABOUT STAY, PT ACKNOWLEDGES UNDERSTANDING. RAILS UP, BED IN LOW POSITION, CALL LIGHT IN REACH, ENCOURAGED TO CALL NEEDED PT ACKNOWLEDGES. PT ADMITTED FOR SICKLE CELL CRISIS, PNEUMONIA, PANCREATITIS.
[2021-11-11 22:58] VITALS: BP 124/55; TEMP 97.7; Ht 175.3 cm; Wt 60.1 kg
--- NOTE | 2021-11-11 23:56 | NUR ---
PT C/O CONSTANT PAIN TO BACK AND JOINTS THAT HE RATES A "7" ON SCALE, GAVE DEMEROL 75MG SLOW IVP PRN PER PT REQUEST. WILL MONITOR CLOSELY, RAILS UP, BED IN LOW POSITION, CALL LIGHT IN REACH.
--- NOTE | 2021-11-12 00:30 | NUR ---
PT FOUND RESTING IN POSITION OF COMFORT ON R SIDE WITH EYES CLOSED AND LIGHT SNORING NOTED, NO S/S OF PAIN OR REACTIONS NOTED SINCE PRN MEDICATION GIVEN, RESP RATE NONLABORED, ON ROOM AIR, IV INTACT TO L AC WITH FLUID ONGOING AT 200ML/HR, WILL MONITOR, RAILS UP, BED IN LOW POSITION, CALL LIGHT IN REACH.
--- NOTE | 2021-11-12 03:15 | NUR ---
RESTING IN POSITION OF COMFORT ON L SIDE WITH EYES CLOSED, NO S/S OF PAIN OR DISTRESS NOTED, RESP RATE NONLABORED, ON ROOM AIR, 20G IV INTACT TO L AC WITH FLUID ONGOING, WILL MONITOR, PT AROUSES BRIEFLY AND DENIES ANY NEEDS, RAILS UP, BED IN LOW POSITION, CALL LIGHT IN REACH.
[2021-11-12 04:00] VITALS: BP 130/70; TEMP 98.5
--- NOTE | 2021-11-12 04:13 | NUR ---
PT AWAKE WITH NO ACUTE DISTRESS NOTED, C/O CONSTANT PAIN THAT HE STATES IS "NOT REAL GOOD" WHEN ASKED TO DESCRIBE HIS PAIN RATES PAIN A "7" ON SCALE, PAIN IS TO ALL OF HIS JOINTS AND BACK. GAVE DEMEROL 75MG IVP PRN AT THIS TIME, DENIES ANY OTHER NEEDS, WILL MONITOR CLOSELY, RAILS UP, BED IN LOW POSITION, CALL LIGHT IN REACH.
--- NOTE | 2021-11-12 04:45 | NUR ---
PT FOUND RESTING IN BED WITH EYES CLOSED, NO S/S OF PAIN OR DISTRESS NOTED, NO REACTIONS NOTED TO PRN DEMEROL GIVEN, IV INTACT WITH FLUID ONGOING, RESP RATE NONLABORED, WILL MONITOR CLOSELY, RAILS UP, BED IN LOW POSITION, CALL LIGHT IN REACH.
[2021-11-12 06:59] LABS: POTASSIUM 4.1 mmol/L (3.6-5.2)
[2021-11-12 07:15] LABS: PLATELET COUNT 235 K/uL (142-355)
--- NOTE | 2021-11-12 07:40 | NUR ---
PT LAYING IN BED IN LF AWAKE, ALERT, AND ORIENTED. PT C/O PAIN TO CHEST, BACK, AND JOINTS HURTING. PAIN RATE 7/10. PT INFORMED PT MEDICATION WILL BE PROVIDED WHEN IT'S TIME. PT VERBALIZES UNDERSTANDING. AM ASSESSMENT COMPLETED AT THIS TIME.
[2021-11-12 08:00] VITALS: BP 124/54; TEMP 98.5
--- NOTE | 2021-11-12 08:30 | NUR ---
IN TO ADMINISTER AM MEDS AND PAIN MEDICATION. PT NOTED TO BE SITTING UP ON THE COUCH, ROCKING AND THEN UP AMBULATING AROUND STATING THAT HE WAS TRYING TO GET HIS PAIN TO EASE OFF SOME. PT PROVIDED DEMORAL 75MG IV SLOW PUSH AND PHENERGAN 25MG IVPB PER MD ORDERS FOR PAIN/NAUSEA. PT TOLERATES AM MEDS WELL. INSTRUCTED PT TO CALL IF ANYTHING IS NEEDED.
[2021-11-12] MEDS ORDERED: ZOLPIDEM TARTRATE PO (10:46)
[2021-11-12] MEDS ORDERED: LISI5TAB10 PO (10:46)
[2021-11-12 12:00] VITALS: BP 119/57; TEMP 97.9
[2021-11-12 16:00] VITALS: BP 143/77; TEMP 97.9
[2021-11-12 20:00] VITALS: BP 129/69; TEMP 98.6
[2021-11-13] VITALS: BP 139/71; TEMP 98.7
[2021-11-13 04:00] VITALS: BP 128/65; TEMP 98.9
[2021-11-13 06:22] LABS: PLATELET COUNT 230 K/uL (142-355)
[2021-11-13 06:44] LABS: POTASSIUM 4.7 mmol/L (3.6-5.2)
--- NOTE | 2021-11-13 07:50 | NUR ---
PT CALLED TO NURSES STATION TO REPORT IV PUMP BEEPING. INTO START NEW BAG OF IV FLUIDS. NS INFUSING TO 20G IN LAC WITHOUT DIFFICULTY. PT C/O PAIN 09/09 PRN PAID MEDICATION PROVIDED. AM ASSESSMENT COMPLETED. PT REPORTS FEELING SOME BETTER BUT STILL HURTING. BILAT LUNG SOUNDS CLEAR THROUGH OUT. PT REMAINS ON ROOM AIR. PT VERBALIZES HIS PAIN IN HIS BACK, CHEST, AND JOINTS. AM MEDS GIVEN WITHOUT DIFFICULTY. CALL LIGHT WITHIN REACH. PT REMAINS ALERT AND ORIENTED.
[2021-11-13 08:16] VITALS: BP 119/71; TEMP 98.7
[2021-11-13 12:22] VITALS: BP 110/54; TEMP 98.5
[2021-11-13] MEDS ORDERED: AZIT250T3 PO (12:23)
--- NOTE | 2021-11-13 14:07 | NUR ---
PT'S IV DC'D TIP INTACT NO REDNESS OR SWELLING NOTED. PT TOLERATED WELL. PT PROVIDED DISCHARGE INSTRUCTIONS AND WORK EXCUSE. PT INSTRUCTED TO KEEP FOLLOW UP APPTS WITH PCP AND [facility]. NEGRITA YOUNG, PHD PROVIDED PT WITH NEW MEDICATION AND EDUCATION. PT DENIES ANY QUESTIONS OR NEEDS. PT DC'D VIA AMBULATORY PER HIS REQUEST AT THIS TIME.
== END 2021-11-13 14:07 | disposition home or self-care (01) | DRG 812 ==
LOC: ED 20:09 → MED/SURG 22:13
PROVIDERS: ADMIT Family Medicine; ATTEND Internal Medicine
DX: D57.818 Other sickle-cell disorders with crisis with other specified complication (principal); I10 Essential (primary) hypertension; K21.9 Gastro-esophageal reflux disease without esophagitis; R59.1 Generalized enlarged lymph nodes; J02.9 Acute pharyngitis, unspecified
CPT/HCPCS: 36415; 80048; 80053; 81000; 82150; 83605; 83690; 83735; 84100; 84484; 85027; 85379; 86140; 87040; 87502; 87635; 87651; 93005; 94664; 94760; 96360; 96361; 96374; 96375; 99284; J0456; J0696; J1885; J2175; J2550; U0003

== ENCOUNTER 2021-12-10 01:25 | Emergency (ER) | payer OTHER ==
[~2021-12-10] VITALS: Ht 175.3 cm; Wt 59.9 kg
[~2021-12-10 01:25] MED LIST changes: +AZIT250T3 PO; +ZOLPIDEM TARTRATE PO
[2021-12-10 02:05] VITALS: BP 118/70; TEMP 97.9
== END 2021-12-10 02:10 | disposition home or self-care (01) ==
LOC: ED 01:25
DX: G47.09 Other insomnia (principal)
CPT/HCPCS: 99282

== ENCOUNTER 2021-12-10 20:44 | Emergency (ER) | payer OTHER ==
[~2021-12-10] VITALS: Ht 175.3 cm; Wt 59.0 kg
[2021-12-10 22:06] LABS: PLATELET COUNT 269 K/uL (142-355)
[2021-12-10 22:14] LABS: POTASSIUM 4.1 mmol/L (3.6-5.2)
[2021-12-11 00:15] VITALS: BP 118/70; TEMP 99.1
== END 2021-12-11 00:15 | disposition home or self-care (01) ==
LOC: ED 20:44
PROVIDERS: Emergency Medicine Emergency Medical Services
DX: G47.09 Other insomnia (principal); G25.81 Restless legs syndrome
CPT/HCPCS: 36415; 80053; 81000; 83735; 85027; 85044; 99283

== ENCOUNTER 2022-01-15 22:38 | Inpatient (IN) | payer OTHER ==
[~2022-01-15] VITALS: Ht 175.3 cm; Wt 60.6 kg
[2022-01-15 22:38] VITALS: BP 123/81; TEMP 98.6
[2022-01-15 23:30] VITALS: BP 124/74
[2022-01-15 23:35] LABS: POTASSIUM 4.1 mmol/L (3.6-5.2)
[2022-01-15 23:54] LABS: PARTIAL THROMBOPLASTIN TIME 29.2 SECONDS (24.5-33.6)
[2022-01-16] VITALS (9 sets, daily range): BP systolic 98–135; BP diastolic 53–72; TEMP 98.3–99; Ht 175.3 cm; Wt 60.6 kg
[2022-01-16 00:01] LABS: PLATELET COUNT 228 K/uL (142-355)
[2022-01-16 05:04] LABS: POTASSIUM 4.2 mmol/L (3.6-5.2)
[2022-01-16 05:13] LABS: PLATELET COUNT 200 K/uL (142-355)
[2022-01-16] MEDS ORDERED: FOLI1TAB26 PO (10:02)
[2022-01-16] MEDS ORDERED: LISI5TAB10 PO (10:02)
[2022-01-16] MEDS ORDERED: AMBIEN5 MG PO (10:02)
[2022-01-16] MEDS ORDERED: OXBRYTA PO (10:03)
[2022-01-16] MEDS ORDERED: MORPHINE SULFATE PO (10:04)
[2022-01-16] MEDS ORDERED: OXYCODONE HCL15 MG PO (10:05)
[2022-01-16] MEDS ORDERED: PANTOPRAZOLE 40MG TA PO (10:05)
[2022-01-16] MEDS ORDERED: METOCLOPRAMIDE H5 MG PO (10:54)
[2022-01-16] MEDS ORDERED: TRAZ50TA36 PO (10:55)
[2022-01-17 03:44] VITALS: BP 113/60; TEMP 98.4
[2022-01-17 07:08] LABS: PLATELET COUNT 215 K/uL (142-355)
[2022-01-17 08:00] VITALS: BP 123/61; TEMP 98.4
[2022-01-17 12:00] VITALS: BP 104/55; TEMP 98.6
[2022-01-17 16:01] VITALS: BP 112/63; TEMP 98.7
[2022-01-17 19:43] VITALS: BP 118/57; TEMP 99.1
[2022-01-17 23:39] VITALS: BP 128/62; TEMP 99
[2022-01-18 03:42] VITALS: BP 126/65; TEMP 98.6
[2022-01-18 05:43] LABS: PLATELET COUNT 195 K/uL (142-355)
[2022-01-18 07:45] VITALS: BP 118/51; TEMP 98.5
[2022-01-18 12:00] VITALS: BP 112/58; TEMP 98.5
== END 2022-01-18 15:21 | disposition home or self-care (01) | DRG 812 ==
LOC: ED 22:38 → MED/SURG 01-16 00:20
PROVIDERS: ADMIT Emergency Medicine; ATTEND Internal Medicine
DX: D57.818 Other sickle-cell disorders with crisis with other specified complication (principal); I10 Essential (primary) hypertension; K21.9 Gastro-esophageal reflux disease without esophagitis; D72.828 Other elevated white blood cell count; Z86.711 Personal history of pulmonary embolism
CPT/HCPCS: 36415; 80048; 80053; 81002; 82248; 82550; 84484; 85027; 85044; 85610; 85730; 86850; 86900; 86901; 86922; 87040; 87635; 93005; 94760; 96360; 96374; 96375; 99284; J1650; J2175; J2270; J2405; J2550; U0003

== ENCOUNTER 2022-02-14 13:44 | Outpatient (CLI) | payer OTHER ==
[~2022-02-14 13:44] MED LIST changes: +METOCLOPRAMIDE H5 MG PO; +MORPHINE SULFATE PO; +TRAZ50TA36 PO
[2022-02-14 14:05] LABS: PLATELET COUNT 234 K/uL (142-355)
[2022-02-14 14:11] LABS: POTASSIUM 4.4 mmol/L (3.6-5.2)
== END 2022-02-14 19:05 | disposition home or self-care (01) ==
LOC: LABW 13:44
PROVIDERS: ATTEND Internal Medicine Hematology & Oncology
DX: D57.80 Other sickle-cell disorders without crisis (principal)
CPT/HCPCS: 36415; 80053; 82043; 82570; 83615; 85027

== ENCOUNTER 2022-03-12 12:32 | Outpatient (CLI) | payer OTHER ==
[2022-03-12 12:59] LABS: PLATELET COUNT 286 K/uL (142-355)
== END 2022-03-12 20:36 | disposition home or self-care (01) ==
LOC: LABW 12:32
PROVIDERS: ATTEND Internal Medicine Hematology & Oncology
DX: D57.80 Other sickle-cell disorders without crisis (principal)
CPT/HCPCS: 36415; 85027

== ENCOUNTER 2022-05-17 17:10 | Emergency (ER) | payer OTHER ==
[~2022-05-17] VITALS: Ht 175.3 cm; Wt 72.6 kg
[2022-05-17 17:17] VITALS: TEMP 97.8
[2022-05-17 18:34] LABS: PLATELET COUNT 290 K/uL (142-355)
[2022-05-17 18:38] LABS: POTASSIUM 4.4 mmol/L (3.6-5.2)
[2022-05-17 19:49] VITALS: BP 132/69
== END 2022-05-17 19:49 | disposition home or self-care (01) ==
LOC: ED 17:10
PROVIDERS: Internal Medicine
DX: D57.00 Hb-SS disease with crisis, unspecified (principal)
CPT/HCPCS: 80053; 85007; 85027; 85044; 96366; 96372; 96374; 96376; 99284; J2175; J2550

== ENCOUNTER 2022-05-24 01:40 | Emergency (ER) | payer OTHER ==
[~2022-05-24] VITALS: Ht 175.3 cm; Wt 59.0 kg
[2022-05-24 01:40] VITALS: BP 127/71; TEMP 98.2
== END 2022-05-24 06:44 | disposition home or self-care (01) ==
LOC: ED 01:40
DX: D57.00 Hb-SS disease with crisis, unspecified (principal)
CPT/HCPCS: 96372; 99283; J2175; J2405; J2550

== ENCOUNTER 2022-06-16 17:38 | Observation (INO) | payer OTHER ==
[~2022-06-16] VITALS: Ht 175.3 cm; Wt 59.0 kg
[2022-06-16 17:45] VITALS: BP 122/47; TEMP 99.1
[2022-06-16 18:58] LABS: PLATELET COUNT 235 K/uL (142-355)
[2022-06-16 20:27] VITALS: BP 115/61; TEMP 98.3; Ht 175.3 cm; Wt 59.0 kg
[2022-06-16 23:46] VITALS: BP 107/50; TEMP 98
[2022-06-17 03:38] VITALS: BP 122/45; TEMP 98.2
[2022-06-17 07:25] LABS: PLATELET COUNT 245 K/uL (142-355)
[2022-06-17 07:47] LABS: POTASSIUM 4.1 mmol/L (3.6-5.2)
[2022-06-17 08:00] VITALS: BP 124/70; TEMP 97.6
[2022-06-17 12:12] VITALS: BP 114/48; TEMP 97.4
[2022-06-17 16:00] VITALS: BP 115/58; TEMP 98.4
[2022-06-17 20:10] VITALS: BP 121/52; TEMP 98.2
[2022-06-18] VITALS: BP 120/64; TEMP 98.4
[2022-06-18 04:00] VITALS: BP 144/61; TEMP 98.6
[2022-06-18 05:22] LABS: POTASSIUM 4.4 mmol/L (3.6-5.2)
[2022-06-18 05:33] LABS: PLATELET COUNT 82 K/uL (142-355)
[2022-06-18 08:00] VITALS: BP 119/54; TEMP 97.9
== END 2022-06-18 11:12 | disposition home or self-care (01) ==
LOC: ED 17:38 → MED/SURG 19:12
PROVIDERS: ADMIT Family Medicine; ATTEND Internal Medicine
DX: D57.818 Other sickle-cell disorders with crisis with other specified complication (principal); D64.89 Other specified anemias
CPT/HCPCS: 36415; 80053; 80307; 81000; 82150; 82550; 83690; 83735; 84100; 84484; 85027; 86140; 93005; 96360; 96361; 96367; 96374; 96375; 96376; 99221; 99284; G0378; J1170; J2175; J2405; J2550

== ENCOUNTER 2022-06-25 10:21 | Emergency (ER) | payer OTHER ==
[~2022-06-25] VITALS: Ht 175.3 cm; Wt 59.0 kg
[2022-06-25 10:40] VITALS: BP 167/64; TEMP 97.8
[2022-06-25 11:22] LABS: PLATELET COUNT 274 K/uL (142-355)
[2022-06-25 11:30] LABS: POTASSIUM 4.5 mmol/L (3.6-5.2)
== END 2022-06-25 14:10 | disposition home or self-care (01) ==
LOC: ED 10:21
PROVIDERS: Emergency Medicine
DX: E86.0 Dehydration (principal); D57.819 Other sickle-cell disorders with crisis, unspecified
CPT/HCPCS: 80053; 81000; 85027; 93005; 96361; 96374; 96375; 96376; 99284; J1170; J2175; J2405

== ENCOUNTER 2022-06-26 00:51 | Inpatient (IN) | payer OTHER ==
[~2022-06-26] VITALS: Ht 175.3 cm; Wt 62.7 kg
[2022-06-26 01:00] VITALS: BP 149/81; TEMP 98.8
[2022-06-26 02:49] LABS: PLATELET COUNT 215 K/uL (142-355)
[2022-06-26 03:40] LABS: POTASSIUM 5.2 mmol/L (3.6-5.2)
[2022-06-26 10:50] VITALS: BP 136/67; TEMP 97.9; Ht 175.3 cm; Wt 62.7 kg
[2022-06-26 12:00] VITALS: BP 122/60; TEMP 97.9
[2022-06-26 16:00] VITALS: BP 134/76; TEMP 98.1
[2022-06-26 20:00] VITALS: BP 135/75; TEMP 98.3
[2022-06-27 04:00] VITALS: BP 118/63; TEMP 98.3
[2022-06-27 05:05] LABS: PLATELET COUNT 230 K/uL (142-355)
[2022-06-27 05:26] LABS: POTASSIUM 4.5 mmol/L (3.6-5.2)
[2022-06-27 08:00] VITALS: BP 138/66; TEMP 98.5
[2022-06-27 16:00] VITALS: BP 107/79; TEMP 98.3
[2022-06-27 20:00] VITALS: BP 135/71; TEMP 98.6
[2022-06-28 04:33] LABS: PLATELET COUNT 207 K/uL (142-355)
[2022-06-28 05:30] LABS: POTASSIUM 4.6 mmol/L (3.6-5.2)
[2022-06-28 07:00] VITALS: BP 141/59; TEMP 98.9
[2022-06-28 12:39] VITALS: BP 119/82; TEMP 98.4
[2022-06-28 16:14] VITALS: BP 139/66; TEMP 98.3
[2022-06-28 20:00] VITALS: BP 143/77; TEMP 99.1
[2022-06-28 23:50] VITALS: BP 122/54; TEMP 98.7
[2022-06-29 03:39] VITALS: BP 124/55; TEMP 98.8
== END 2022-06-29 10:38 | disposition home or self-care (01) | DRG 812 ==
LOC: ED 00:51 → MED/SURG 04:38
PROVIDERS: ADMIT Emergency Medicine; ATTEND Internal Medicine
DX: D57.818 Other sickle-cell disorders with crisis with other specified complication (principal); Z86.711 Personal history of pulmonary embolism; Z79.01 Long term (current) use of anticoagulants; M54.89 Other dorsalgia; R07.89 Other chest pain
CPT/HCPCS: 36415; 80053; 81000; 83605; 83735; 84100; 85027; 85044; 85652; 94760; 96361; 96365; 96374; 96375; 96376; 99284; J1170; J2175; J2405; J2550

== ENCOUNTER 2022-07-16 21:43 | Inpatient (IN) | payer OTHER ==
[~2022-07-16] VITALS: Ht 175.3 cm; Wt 55.5 kg
[~2022-07-16 21:43] MED LIST changes: +MORPHINE ER PO; -MORPHINE SULFATE PO
[2022-07-16 22:00] VITALS: BP 127/48; TEMP 98.8
[2022-07-16 22:59] LABS: PLATELET COUNT 252 K/uL (142-355)
[2022-07-16 23:05] LABS: POTASSIUM 4.7 mmol/L (3.6-5.2)
[2022-07-17] VITALS (16 sets, daily range): BP systolic 100–151; BP diastolic 40–82; TEMP 97.7–98.9; Ht 175.3 cm; Wt 55.5 kg
[2022-07-17 04:03] LABS: PLATELET COUNT 247 K/uL (142-355)
[2022-07-17 04:51] LABS: POTASSIUM 4.3 mmol/L (3.6-5.2)
[2022-07-17] MEDS ORDERED: ZOLPIDEM PO (10:18)
[2022-07-18] VITALS (9 sets, daily range): BP systolic 127–147; BP diastolic 58–86; TEMP 97.5–98.2
[2022-07-18 07:37] LABS: PLATELET COUNT 270 K/uL (142-355)
[2022-07-18 07:56] LABS: POTASSIUM 4.4 mmol/L (3.6-5.2)
[2022-07-19 04:00] VITALS: BP 130/65; TEMP 98.6
[2022-07-19 07:31] LABS: PLATELET COUNT 257 K/uL (142-355)
[2022-07-19 08:00] VITALS: BP 125/79; TEMP 97.8
[2022-07-19 08:00] LABS: POTASSIUM 4.2 mmol/L (3.6-5.2)
[2022-07-19 12:00] VITALS: BP 133/76; TEMP 97.8
[2022-07-19 16:00] VITALS: BP 131/71; TEMP 97.4
[2022-07-19 20:00] VITALS: BP 138/69; TEMP 98.4
[2022-07-20] VITALS: BP 155/71; TEMP 98.3
[2022-07-20 04:00] VITALS: BP 133/55; TEMP 98.5
[2022-07-20 06:45] VITALS: BP 126/74; TEMP 98
[2022-07-20 11:59] LABS: PLATELET COUNT 259 K/uL (142-355)
[2022-07-20 12:00] VITALS: BP 104/74; TEMP 97.6
[2022-07-20 12:08] LABS: POTASSIUM 3.9 mmol/L (3.6-5.2)
[2022-07-20 16:00] VITALS: BP 132/75; TEMP 97.6
[2022-07-20 20:04] VITALS: BP 152/75; TEMP 98.2
[2022-07-21] VITALS: BP 169/83; TEMP 98.4
[2022-07-21 04:00] VITALS: BP 132/65; TEMP 98.5
[2022-07-21 08:04] VITALS: BP 125/64; TEMP 97.9
[2022-07-21 10:22] LABS: PLATELET COUNT 240 K/uL (142-355)
[2022-07-21 12:00] VITALS: BP 130/62; TEMP 98.3
[2022-07-21] MEDS ORDERED: PEPCID40 MG PO (14:24)
[2022-07-21] MEDS ORDERED: LEVOFLOXACIN500 MG PO (14:26)
== END 2022-07-21 14:55 | disposition home or self-care (01) | DRG 811 ==
LOC: ED 21:43 → MED/SURG 07-17 01:55
PROVIDERS: Emergency Medicine; Internal Medicine; ADMIT Internal Medicine; ATTEND Internal Medicine
PROC: 30233N1 Transfusion of Nonautologous Red Blood Cells into Peripheral Vein, Percutaneous Approach (ICD-10-PCS; principal; 2022-07-17)
DX: D57.818 Other sickle-cell disorders with crisis with other specified complication (principal); J18.8 Other pneumonia, unspecified organism; E46 Unspecified protein-calorie malnutrition; Z68.1 Body mass index [BMI] 19.9 or less, adult; R06.02 Shortness of breath; I10 Essential (primary) hypertension; K21.9 Gastro-esophageal reflux disease without esophagitis; F41.8 Other specified anxiety disorders; R52 Pain, unspecified; D72.828 Other elevated white blood cell count; R53.1 Weakness
CPT/HCPCS: 36415; 80053; 81000; 85027; 85044; 85652; 86140; 86850; 86900; 86901; 86922; 87040; 93005; 96361; 96374; 96375; 96376; 99284; J1200; J1956; J2175; J2405; J2930; P9016

== ENCOUNTER 2022-10-24 10:54 | Emergency (ER) | payer OTHER ==
[~2022-10-24] VITALS: Ht 175.3 cm; Wt 59.0 kg
[~2022-10-24 10:54] MED LIST changes: +LEVOFLOXACIN500 MG PO; +PEPCID40 MG PO
[2022-10-24 11:08] VITALS: BP 119/61; TEMP 98.3
[2022-10-24 13:35] LABS: PLATELET COUNT 267 K/uL (142-355)
[2022-10-24 13:42] LABS: POTASSIUM 3.7 mmol/L (3.6-5.2)
== END 2022-10-24 17:22 | disposition home or self-care (01) ==
LOC: ED 10:54
PROVIDERS: Family Medicine
DX: D57.00 Hb-SS disease with crisis, unspecified (principal); R53.1 Weakness
CPT/HCPCS: 80053; 81000; 82550; 85027; 85044; 85652; 96365; 96367; 96374; 96375; 99284; J2175; J2550

== ENCOUNTER 2022-11-30 12:38 | Inpatient (IN) | payer OTHER ==
[~2022-11-30] VITALS: Ht 175.3 cm; Wt 66.7 kg
[2022-11-30 13:01] VITALS: BP 109/49; TEMP 97.7
[2022-11-30 14:16] LABS: PLATELET COUNT 67 K/uL (142-355)
[2022-11-30 14:19] LABS: POTASSIUM 4.4 mmol/L (3.6-5.2)
[2022-11-30 17:48] VITALS: BP 107/60; TEMP 98.8; Ht 175.3 cm; Wt 66.7 kg
[2022-11-30] MEDS ORDERED: MORP30TA10 PO (19:17)
[2022-11-30] MEDS ORDERED: AMBIEN5 MG PO (19:19)
[2022-12-01] VITALS (11 sets, daily range): BP systolic 91–135; BP diastolic 48–76; TEMP 97.8–98.9
[2022-12-01 02:58] LABS: PLATELET COUNT 222 K/uL (142-355)
[2022-12-01 03:06] LABS: POTASSIUM 4.8 mmol/L (3.6-5.2)
[2022-12-02] VITALS (10 sets, daily range): BP systolic 107–138; BP diastolic 57–84; TEMP 97.3–98.9
[2022-12-02 12:13] LABS: PLATELET COUNT 185 K/uL (142-355)
[2022-12-02 12:20] LABS: POTASSIUM 4.4 mmol/L (3.6-5.2)
[2022-12-03 03:51] VITALS: BP 118/56; TEMP 97.6
[2022-12-03 07:54] VITALS: BP 127/58; TEMP 97.6
[2022-12-03 09:03] LABS: PLATELET COUNT 241 K/uL (142-355)
[2022-12-03 12:00] VITALS: BP 144/72; TEMP 97.5
== END 2022-12-03 12:54 | disposition home or self-care (01) | DRG 812 ==
LOC: ED 12:38 → MED/SURG 15:13
PROVIDERS: Family Medicine; ADMIT Internal Medicine Endocrinology, Diabetes & Metabolism; ATTEND Internal Medicine Endocrinology, Diabetes & Metabolism
PROC: 30233N1 Transfusion of Nonautologous Red Blood Cells into Peripheral Vein, Percutaneous Approach (ICD-10-PCS; principal; 2022-12-01)
PROC: 30233N1 Transfusion of Nonautologous Red Blood Cells into Peripheral Vein, Percutaneous Approach (ICD-10-PCS; 2022-12-02)
DX: D57.818 Other sickle-cell disorders with crisis with other specified complication (principal); N17.8 Other acute kidney failure; R06.02 Shortness of breath; D64.89 Other specified anemias; K21.9 Gastro-esophageal reflux disease without esophagitis; G89.4 Chronic pain syndrome; R94.5 Abnormal results of liver function studies; R31.0 Gross hematuria; R10.9 Unspecified abdominal pain; M54.59 Other low back pain
CPT/HCPCS: 36415; 36430; 80048; 80053; 81000; 85007; 85027; 85044; 86850; 86870; 86900; 86901; 86922; 87086; 87088; 94760; 96361; 96365; 96367; 96374; 96375; 99284; J0696; J1170; J1200; J1885; J1940; J2175; J2270; J2405; J2550; J3490; P9016

== ENCOUNTER 2022-12-10 10:58 | Outpatient (CLI) | payer OTHER ==
[~2022-12-10 10:58] MED LIST changes: +MORP30TA10 PO
== END 2022-12-10 18:54 | disposition home or self-care (01) ==
LOC: RAD 10:58
PROVIDERS: ATTEND Internal Medicine
DX: S39.012A Strain of muscle, fascia and tendon of lower back, initial encounter (principal); Y92.89 Other specified places as the place of occurrence of the external cause